=== PATIENT | male | born 1975 | race Caucasian/White ===

== ENCOUNTER 2017-03-19 23:03 | Emergency (ER) | payer BC ==
[~2017-03-19] VITALS: Ht 190.5 cm; Wt 116.0 kg
[~2017-03-19 23:03] MED LIST: BNC/40 PO; GLC500 PO; MULT-506 PO
[2017-03-19 23:13] VITALS: Ht 190.5 cm; Wt 116.0 kg
[2017-03-19] MEDS ORDERED: SODIUM CHLORIDE 0.9% 1000ML 1,000 ML IV STA (23:34)
[2017-03-19] MEDS ORDERED: DiphenhydrAMINE HCL 50 MG/ML VIAL IV STA (23:34)
[2017-03-19] MEDS ORDERED: METOCLOPRAMIDE HCL INJ 5 MG/ML 2 ML VIAL IV STA (23:34)
[2017-03-19] MEDS ORDERED: SODIUM CHLORIDE 0.9% 1000ML 2,000 ML IV STA (23:34)
[2017-03-19] MEDS ORDERED: IBUPROFEN 800 MG TAB PO STA (23:34)
[2017-03-19] MEDS ORDERED: ACETAMINOPHEN 500 MG TAB PO STA (23:34)
[2017-03-19 23:49] LABS: BASO % 0.1 %; BASO ABS # 0.03 K/uL (0-0.2); COMPLETE YES; HEMATOCRIT 39.7 % (42-52); IG% 0.6 %; LYMPH % 2.3 %; LYMPH ABS # 0.48 K/uL (1.2-3.4); MEAN CELL VOLUME 83.4 fL (80-100); MEAN CORPUSCULAR HEMOGLOBIN 30.3 pg (25-34); MEAN CORPUSCULAR HGB CONC 36.3 g/dl (32-36); MEAN PLATELET VOLUME 8.9 fL (7.4-10.4); MONO % 4.3 %; NEUT % 92.7 %; PLATELET COUNT 153 K/uL (130-400); RED BLOOD COUNT 4.76 M/uL (4.7-6.1); WHITE BLOOD COUNT 21.33 K/uL (4.8-10.8)
[2017-03-19] MEDS ORDERED: CEFTRIAXONE SOD INJ 2,000 MG in DEXTROSE 5% 50ML 50 ML IV STA (23:57)
[2017-03-20] VITALS: O2SAT 98
[2017-03-20] MEDS ORDERED: DEXAMETHASONE SOD INJ 10 MG/ML VIAL IV ONE
[2017-03-20 00:01] LABS: INR 1.1 (0.9-1.1); PARTIAL THROMBOPLASTIN RATIO 0.9
[2017-03-20 00:06] LABS: ALT/SGPT 40 U/L (12-78); BLOOD UREA NITROGEN 16 mg/dl (7-18); BUN/CREATININE RATIO 11.1 (10-20); CARBON DIOXIDE 24 mmol/L (21-32); CHLORIDE 97 mmol/L (98-107); GLUCOSE 215 mg/dl (70-99); POTASSIUM 3.8 mmol/L (3.5-5.1); SODIUM 133 mmol/L (136-145)
[2017-03-20 00:11] LABS: ALB/GLOB RATIO 0.9 (0.9-2); ALKALINE PHOSPHATASE 84 U/L (45-117); AST/SGOT 33 U/L (15-37)
[2017-03-20 01:09] LABS: URINE APPEARANCE CLEAR (CLEAR); URINE BILIRUBIN NEG (NEG); URINE COLOR ORANGE; URINE NITRITE NEG (NEG); URINE PH 5.5 (4.5-7.5); URINE SPECIFIC GRAVITY 1.026 (1.000-1.030); UROBILINOGEN NEG (NEG); ZZUR CULT IF INDIC CLEAN CATCH NO
[2017-03-20 01:10] LABS: MANUAL MICROSCOPIC REQUIRED? NO; REVIEW REQ? NO
[2017-03-20] MEDS ORDERED: XYLOCAINE 1%/SOD BICARB 20 ML VIAL INFIL ONE (01:15)
[2017-03-20 01:40] LABS: CSF APPEARANCE CLEAR; CSF CHEMISTRY TUBE # 2; CSF COLOR COLORLESS; CSF XANTHOCHROMIC NO XANTHOCHROMIA
[2017-03-20 01:57] VITALS: BP 129/59; PULSE 99; TEMP 37.9; O2SAT 98
[2017-03-20 02:08] LABS: INFLUENZA A PCR Neg for Influ A (NEG); INFLUENZA B PCR Neg for Influ B (NEG)
--- NOTE | 2017-03-20 02:39 | EMERGENCY ROOM VISIT NOTE ---
History First contact with patient: 23:23 Chief Complaint: FEVER Stated Complaint: VOMITING, FEVER 104 History of Present Illness The patient is a 41 year old male who presents to the Emergency Room with complaints of headache, fever, vomiting for the past day who for the past week has had sinus pain or congestion. Tmax 104 today. Patient is tolerating 6 PM. Patient states he has chronic neck pain and this is unchanged. Headache, 6 of 10 throughout the frontal region. Nothing makes it better or worse. Patient denies chest pain, dyspnea, abdominal pain, diarrhea, back pain, urinary symptoms. No recent travel. Review of Systems See HPI for pertinent positives & negatives. A total of 10 systems reviewed and were otherwise negative. Past Medical/Surgical History Medical Problems: (1) Anxiety Hypertension, diabetes, sinus surgery Social History Smoking Status: Never Smoker Alcohol Use: occasionally Drug Use: none Marital Status: Housing Status: lives with family Occupation Status: employed Current/Historical Medications Scheduled Metformin HCl (Metformin HCl), 500 MG PO BIDM Multivitamin (Multivitamin), 1 TAB PO DAILY Olmesartan Medoxomil (Benicar), 20 MG PO DAILY Physical Exam Vital Signs Date Time Temp Pulse Resp B/P (MAP) Pulse Ox O2 Delivery O2 Flow Rate FiO2 03/20/17 01:57 37.9 99 20 129/59 98 Room Air 03/20/17 00:17 116 20 113/55 96 Room Air 03/20/17 00:00 98 Room Air 03/19/17 23:40 113 03/19/17 23:13 37.7 120 20 144/84 97 Room Air Physical Exam VITALS: Vitals are noted on the nurse's note and reviewed by myself. Vital signs febrile and tachycardic GENERAL: Pleasant male ill-appearing, in no acute distress, nondiaphoretic, well -developed well-nourished. SKIN: The skin was without rashes, erythema, edema, or bruising. There is no tenting of the skin. Capillary reflex less than 2 seconds. HEAD: Normocephalic atraumatic. EARS: External auditory canals clear, tympanic membranes pearly velasquez without erythema or effusion bilaterally. EYES: Pupils equal round and reactive to light and accommodation. Conjunctivae without injection, sclerae without icterus. Extraocular movements intact. NOSE: Patent, turbinates without inflammation or discharge. + Maxillary sinus tenderness. MOUTH: Mucous membranes mildly dry pharynx without erythema or exudate. Uvula midline. Airway patent. Tongue does not deviate. NECK: Supple without nuchal rigidity. No lymphadenopathy. No thyromegaly. Cervical spine is nontender. No JVD. HEART: Regular rate and rhythm without murmurs gallops or rubs. LUNGS: Clear to auscultation bilaterally without wheezes, rales or rhonchi. No dullness to percussion. No retractions or accessory muscle use. ABDOMEN: Positive bowel sounds x 4. Normal tympanic percussion. Soft, nontender, without masses or organomegaly. Rowland sign negative. No guarding or rebound tenderness. MUSCULOSKELETAL: No muscle atrophy, erythema, or edema noted. NEURO: Patient was alert and oriented to person place and time. Normal sensation to light and sharp touch. No focal neurological deficits. Medical Decision & Procedures Laboratory Results 03/19/17 23:39 Red Blood Count 4.76, Mean Corpuscular Volume 83.4, Mean Corpuscular Hemoglobin 30.3, Mean Corpuscular Hemoglobin Concent 36.3, Mean Platelet Volume 8.9, Neutrophils (%) (Auto) 92.7, Lymphocytes (%) (Auto) 2.3, Monocytes (%) (Auto) 4.3, Eosinophils (%) (Auto) 0.0, Basophils (%) (Auto) 0.1, Neutrophils # (Auto) 19.79, Lymphocytes # (Auto) 0.48, Monocytes # (Auto) 0.91, Eosinophils # (Auto) 0.00, Basophils # (Auto) 0.03 03/19/17 23:39 Test 03/19/17 23:39 03/19/17 23:50 03/20/17 00:45 03/20/17 01:15 White Blood Count 21.33 K/uL (4.8-10.8) Red Blood Count 4.76 M/uL (4.7-6.1) Hemoglobin 14.4 g/dL (14.0-18.0) Hematocrit 39.7 % (42-52) Mean Corpuscular Volume 83.4 fL (80-100) Mean Corpuscular Hemoglobin 30.3 pg (25-34) Mean Corpuscular Hemoglobin Concent 36.3 g/dl (32-36) Platelet Count 153 K/uL (130-400) Mean Platelet Volume 8.9 fL (7.4-10.4) Neutrophils (%) (Auto) 92.7 % Lymphocytes (%) (Auto) 2.3 % Monocytes (%) (Auto) 4.3 % Eosinophils (%) (Auto) 0.0 % Basophils (%) (Auto) 0.1 % Neutrophils # (Auto) 19.79 K/uL (1.4-6.5) Lymphocytes # (Auto) 0.48 K/uL (1.2-3.4) Monocytes # (Auto) 0.91 K/uL (0.11-0.59) Eosinophils # (Auto) 0.00 K/uL (0-0.5) Basophils # (Auto) 0.03 K/uL (0-0.2) RDW Standard Deviation 39.3 fL (36.4-46.3) RDW Coefficient of Variation 12.9 % (11.5-14.5) Immature Granulocyte % (Auto) 0.6 % Immature Granulocyte # (Auto) 0.12 K/uL (0.00-0.02) Prothrombin Time 12.0 SECONDS (9.0-12.0) Prothromb Time International Ratio 1.1 (0.9-1.1) Activated Partial Thromboplast Time 23.4 SECONDS (21.0-31.0) Partial Thromboplastin Ratio 0.9 Anion Gap 12.0 mmol/L (3-11) Est Creatinine Clear Calc Drug Dose 96.3 ml/min Estimated GFR () 72.3 Estimated GFR (Non- 62.4 BUN/Creatinine Ratio 11.1 (10-20) Calcium Level 10.0 mg/dl (8.5-10.1) Total Bilirubin 3.8 mg/dl (0.2-1) Aspartate Amino Transf (AST/SGOT) 33 U/L (15-37) Alanine Aminotransferase (ALT/SGPT) 40 U/L (12-78) Alkaline Phosphatase 84 U/L (45-117) Troponin I < 0.015 ng/ml (0-0.045) Total Protein 8.2 gm/dl (6.4-8.2) Albumin 3.9 gm/dl (3.4-5.0) Globulin 4.3 gm/dl (2.5-4.0) Albumin/Globulin Ratio 0.9 (0.9-2) Influenza Type A (RT-PCR) Neg for Influ A (NEG) Influenza Type A Antigen Neg for Influ A (NEG) Influenza Type B Antigen Neg for Influ B (NEG) Influenza Type B (RT-PCR) Neg for Influ B (NEG) Urine Color ORANGE Urine Appearance CLEAR (CLEAR) Urine pH 5.5 (4.5-7.5) Urine Specific Holt 1.026 (1.000-1.030) Urine Protein 1+ (NEG) Urine Glucose (UA) 1+ (NEG) Urine Ketones 2+ (NEG) Urine Occult Blood TRACE (NEG) Urine Nitrite NEG (NEG) Urine Bilirubin NEG (NEG) Urine Urobilinogen NEG (NEG) Urine Leukocyte Esterase NEG (NEG) Urine WBC (Auto) 1-5 /hpf (0-5) Urine RBC (Auto) 0-4 /hpf (0-4) Urine Hyaline Casts (Auto) 1-5 /lpf (0-5) Urine Epithelial Cells (Auto) 5-10 /lpf (0-5) Urine Bacteria (Auto) NEG (NEG) CSF Color COLORLESS CSF Appearance CLEAR CSF WBC 1 /uL (0-5) CSF RBC 0 /uL (0) CSF Xanthrochromic NO XANTHOCHROMIA CSF Cell Count Tube # 4 CSF Chemistry Tube # 2 CSF Glucose 97 mg/dl (40-70) CSF Total Protein 75.0 mg/dl (15.0-45.0) Medications Administered Medications (Trade) Dose Ordered Sig/Carson Route Start Time Stop Time Status Last Admin Dose Admin Sodium Chloride 2,000 ml @ 999 mls/hr Q2H1M STAT IV 03/19/17 23:34 03/20/17 01:34 DC 03/19/17 23:46 999 MLS/HR Sodium Chloride 1,000 ml @ 125 mls/hr Q8H STAT IV 03/19/17 23:34 03/20/17 07:33 03/19/17 23:46 125 MLS/HR Metoclopramide HCl (Reglan Inj) 10 mg NOW STAT IV 03/19/17 23:34 03/19/17 23:37 DC 03/19/17 23:47 10 MG Diphenhydramine HCl (Benadryl Inj) 12.5 mg NOW STAT IV 03/19/17 23:34 03/19/17 23:37 DC 03/19/17 23:46 12.5 MG Acetaminophen (Tylenol Tab) 1,000 mg NOW STAT PO 03/19/17 23:34 03/19/17 23:37 DC 03/19/17 23:48 1,000 MG Ibuprofen (Motrin Tab) 800 mg NOW STAT PO 03/19/17 23:34 03/19/17 23:37 DC 03/19/17 23:47 800 MG Ceftriaxone Sodium 2000 mg/ Dextrose 70 ml @ 100 mls/hr ONE STAT IV 03/19/17 23:57 03/20/17 00:38 DC 03/20/17 00:13 100 MLS/HR Dexamethasone Sodium Phosphate (Decadron Inj) 10 mg NOW ONCE IV 03/20/17 00:00 03/20/17 00:01 DC 03/20/17 00:13 10 MG Lidocaine HCl (Buffered Lidocaine 1% Inj) 20 ml ONE ONCE INFIL 03/20/17 01:15 03/20/17 01:16 DC 03/20/17 01:09 20 ML Procedure Lumbar Puncture Indication: Rule out meningitis. Verbal consent was obtained after the risks and benefits were explained, including but not limited to headache, bleeding/clotting, scarring, infection, pain, and bone/joint/nerve damage. At this time, the risks of the procedure are less than the risks of NOT performing the procedure. A time out was taken and the correct patient and site identified. The patient was placed in the sitting position and the back was prepped with betadine and draped in the standard fashion. The L3 intervertebral space was identified, anesthetized locally with 1 % lidocaine without epinephrine, and the 22 gauge spinal needle was inserted through the skin with the bevel parallel to the dural fibers. The needle was carefully advanced into the lumbar cistern and 4 tubes of clear CSF was obtained. The stylet was replaced and the needle was removed. A bandaid was placed and the patient was placed in the supine position. The patient tolerated the procedure well and there were no complications. ED Course Prior records/ancillary studies reviewed. Triage Nursing notes reviewed. Additional history obtained from family. The patient's history was concerning for fever. Differential diagnosis: Etiologies such as viral syndrome, otitis, pharyngitis, pneumonia, influenza, meningitis, urinary tract infection, sepsis, bacteremia, as well as others were entertained. Physical examination: Patient is ill-appearing ER treatment provided: Rocephin, Decadron, Reglan, Benadryl, IV fluids On reassessment the patient felt better. Diagnostics interpreted by me: ECG: Normal sinus, normal intervals, no acute ST-T wave changes, rate of 110. Impression sinus tachycardia interpreted by myself The labs revealed leukocytosis. Negative CSF for meningitis Imaging studies: X-ray concerning for right lower lobe pneumonia per my interpretation. NO Free air. Head and sinus CT negative for intracranial bleed. Right maxillary sinus retention cyst per radiology This appears to be consistent with pneumonia. Patient was started on antibiotics. No signs of meningitis on laboratory workup. Patient was neurovascularly and neurologically intact. Patient is well-appearing. Patient is tolerating fluids. Patient did not have an acute abdomen on exam. Patient was ambulating without difficulties. Patient was advised to follow-up with family care in a few days or here in the ER sooner for severe pain, fevers, chest pain, abdominal pain, worsening signs or symptoms or as needed.By the evaluation outlined above emergent etiologies such as otitis, pharyngitis, meningitis, urinary tract infection, sepsis, bacteremia, as well as others were deemed relatively unlikely. Patient was counseled on the LP and spinal headaches. The pt informed about the findings as listed above. All questions were answered and pleased with the treatment. Return instructions were outlined and the patient was discharged in stable condition. Outpatient prescription management: Clarithromycin Referral: The patient was referred back to their primary care physician for follow-up in 2 to 3 days for a recheck of the current condition. Case reviewed with my attending Medical Decision As above Medication Reconcilliation Current Medication List: was personally reviewed by me Blood Pressure Screening Patient's blood pressure: Normal blood pressure Impression Primary Impression: Pneumonia Additional Impressions: Fever Headache Departure Information Dispostion Home / Self-Care Condition GOOD Referrals Anjelica Foss M.D. (PCP) Patient Instructions My [facility] Additional Instructions DO NOT drive, drink alcohol, operate machinery, or perform dangerous activities today. You were given medications in the ER that can affect your ability to safely function or operate a vehicle. If you develop a headache when you sit up that goes away when you lay down and does not resolve with Tylenol or Motrin within the next 72 hours then you can come to the ER for possible blood patch for possible spinal headache. Biaxin 500 mg: Take one pill twice daily for 10 days for your infection. Take with food, but avoid dairy. Avoid prolonged sun exposure since this medication makes you temporarily more susceptible to sunburns. All antibiotics can cause diarrhea. If this occurs and you feel worse or it does not resolve in 1-2 days follow up with your doctor or return to the Emergency Department as this could be signs of serious underlying problems. Any medication can cause an allergic reaction, stop the pills immediately and return to the ER for rash, hives, breathing difficulties, or swelling. Albuterol Inhaler: Take 2 puffs four times daily for seven days, then as needed. Acetaminophen(Tylenol) may be used for fever or pain. Use 1000mg every six hours as needed. Avoid using more than 3000mg in a 24 hour period. AND/OR Ibuprofen(Motrin, Advil) may be used for fever or pain. Use 600mg every six hours as needed. Take with food. Avoid using more than 2400mg in a 24 hour period. Do not use 2400mg per day for more than three consecutive days without physician direction. Prolonged inappropriate use can lead to stomach upset or ulcers. Hycodan cough syrup: use one teaspoon every six hours only as needed for severe cough. It is best for use at night since it will cause sedation. This is a narcotic medication. Avoid alcohol, operating machinery or dangerous equipment, working on ladders or roofs, DRIVING, or situations where being under the influence may be dangerous. It is recommended to use an over-the- counter stool softener such as Colace, 100mg twice daily while taking this medication to avoid constipation. Controlling your fever with Tylenol and Ibuprofen as above will make you feel better. Rest and drink plenty of fluids. Avoid strenuous activity until your symptoms resolve and your breathing returns to normal. Continue current medications. Return to the ER for chest pain, difficulty breathing, persistent fevers, vomiting, worsening of your condition, or as needed. Follow-up with family care in 2-3 days. Problem Qualifiers Primary Impression: Pneumonia Pneumonia type: due to unspecified organism Laterality: right Lung location : lower lobe of lung Qualified Codes: J18.1 - Lobar pneumonia, unspecified organism
[2017-03-20] MEDS ORDERED: CLAR500T3 PO (02:40)
[2017-03-20] MEDS ORDERED: ALBUTEROL HFA 8 GM INHALER INH ONE (03:35)
--- NOTE | 2017-03-20 06:31 | DIAGNOSTIC IMAGING REPORT ---
HEAD WITHOUT CONTRAST (CT) CT DOSE: HISTORY: Mental status change ELLIS/sinus pain, fever TECHNIQUE: Multiaxial CT images of the head were performed without the use of intravenous contrast. A dose lowering technique was utilized adhering to the principles of ALARA. Comparison: None. Findings: The paranasal sinuses and mastoid air cells are clear. The calvarium and skull base are intact. The ventricles and sulci are within normal limits. There is no mass, hematoma, midline shift, or acute infarct. Impression: No acute intracranial abnormality. The above report was generated using voice recognition software. It may contain grammatical, syntax or spelling errors. Electronically signed by: Francisco Javier Franklin M.D. 03/20/2017 6:30 AM Dictated Date/Time: 03/20/2017 6:29 AM
--- NOTE | 2017-03-20 06:50 | DIAGNOSTIC IMAGING REPORT ---
CHEST ONE VIEW PORTABLE CLINICAL HISTORY: Sepsis. COMPARISON STUDY: Chest radiograph December 20, 2015. FINDINGS: Lung volumes are at the lower limits of normal. There is no pneumothorax or pleural effusion. Pulmonary vascularity is normal. No consolidation is identified. Cardiomediastinal silhouette is normal. IMPRESSION: No acute cardiopulmonary findings. Electronically signed by: Remigio Porras M.D. 03/20/2017 6:49 AM Dictated Date/Time: 03/20/2017 6:48 AM
--- NOTE | 2017-03-20 07:10 | DIAGNOSTIC IMAGING REPORT ---
CT SCAN OF THE PARANASAL SINUSES CLINICAL HISTORY: Headache. Sinus pain. COMPARISON STUDY: CT of the brain performed concurrently on 03/20/2017. TECHNIQUE: High-resolution CT scan of the paranasal sinuses is performed. Images are reviewed in the axial, sagittal, and coronal planes. IV contrast was not administered for this examination. A dose lowering technique was utilized adhering to the principles of ALARA. FINDINGS: Maxillary antra: Trace dependent mucosal thickening is seen bilaterally. A 9 mm retention cyst is noted on the right. Anterior ethmoid sinuses: Clear. Posterior ethmoid sinuses: Clear. Sphenoid sinuses: Clear. Frontal sinuses: Clear. Ostiomeatal complexes: Patent bilaterally. Frontoethmoidal and sphenoethmoidal recesses: Patent bilaterally. Carotid arteries: The carotid arteries are protuberant but covered and without septal attachments. Ethmoid roofs: The ethmoid roofs are symmetric. Nasal turbinates: Normal in appearance. Nasal septum: There is mild leftward deviation of the bony nasal septum. Optic nerves: The optic nerves are covered and protrude into the sphenoid sinuses. Orbits: The bony orbits are intact. Orbital contents are normal in appearance. Calvarium: The imaged calvarium is normal in appearance Mastoid air cells: Well pneumatized. Brain parenchyma: Partially visualized brain parenchyma is within normal limits. IMPRESSION: No significant paranasal sinus disease. See above. Electronically signed by: Evan Casper M.D. 03/20/2017 7:09 AM Dictated Date/Time: 03/20/2017 7:06 AM
--- NOTE | 2017-03-20 14:10 | Pharmacy Progress Note ---
ED Pharmacist Culture FollowUp Date of Service: Mar 20, 2017. Called patient regarding gram positive cocci blood culture. Informed patient of the seriousness of this result and recommended he return to ER for evaluation and follow up care as soon as possible. He verbalized understanding and stated he would return for follow up care.
[2017-03-20] MEDS ORDERED: METF500T5 PO (18:16)
[2017-03-22] MEDS ORDERED: MCRK20 PO (11:44)
[2017-03-22] MEDS ORDERED: AMOX875T PO (11:44)
== END 2017-03-20 03:38 | disposition home or self-care (01) ==
LOC: C.EDB 23:04
DX: J18.1 Lobar pneumonia, unspecified organism (principal); R50.9 Fever, unspecified; R51 Headache; F41.9 Anxiety disorder, unspecified; I10 Essential (primary) hypertension; E11.9 Type 2 diabetes mellitus without complications

== ENCOUNTER 2017-03-20 14:56 | Inpatient (IN) | payer BC ==
[~2017-03-20] VITALS: Ht 190.5 cm; Wt 117.9 kg
[~2017-03-20 14:56] MED LIST changes: +CLAR500T3 PO
[2017-03-20] MEDS ORDERED: VANCOMYCIN INJ 1,000 MG in SODIUM CHLORIDE 0.9% 250ML 250 ML IV STA (16:17)
--- NOTE | 2017-03-20 16:33 | DIAGNOSTIC IMAGING REPORT ---
CHEST ONE VIEW PORTABLE CLINICAL HISTORY: Sepsis COMPARISON STUDY: 03/19/2017 FINDINGS: The cardiac and mediastinal contours are normal. There is no evidence of focal pulmonary consolidation. There is no evidence of failure. No pleural effusions are visualized.[ IMPRESSION: No active disease in the chest. Electronically signed by: Jah Velasquez M.D. 03/20/2017 4:32 PM Dictated Date/Time: 03/20/2017 4:32 PM
[2017-03-20 17:16] LABS: HEMATOCRIT 38.7 % (42-52); MEAN CELL VOLUME 83.9 fL (80-100); MEAN CORPUSCULAR HEMOGLOBIN 29.1 pg (25-34); MEAN CORPUSCULAR HGB CONC 34.6 g/dl (32-36); MEAN PLATELET VOLUME 9.1 fL (7.4-10.4); PLATELET COUNT 186 K/uL (130-400); RED BLOOD COUNT 4.61 M/uL (4.7-6.1); WHITE BLOOD COUNT 24.58 K/uL (4.8-10.8)
[2017-03-20] MEDS ORDERED: IBUPROFEN 600 MG TAB PO STA (17:25)
[2017-03-20] MEDS ORDERED: SODIUM CHLORIDE 0.9% 1000ML 1,000 ML IV STA (17:25)
[2017-03-20 17:30] LABS: INR 1.2 (0.9-1.1); PARTIAL THROMBOPLASTIN RATIO 1.3; PROTHROMBIN TIME (PATIENT) 13.4 SECONDS (9.0-12.0)
[2017-03-20 17:34] LABS: BASO ABS # 0.01 K/uL (0-0.2); COMPLETE YES; IG% 0.5 %; LYMPH % 2.5 %; LYMPH ABS # 0.62 K/uL (1.2-3.4); MONO % 4.5 %; NEUT % 92.5 %
[2017-03-20 17:42] LABS: CALCIUM 9.7 mg/dl (8.5-10.1); CREATININE 1.1 mg/dl (0.60-1.40); POTASSIUM 3.7 mmol/L (3.5-5.1)
[2017-03-20 17:51] LABS: ALB/GLOB RATIO 0.8 (0.9-2)
[2017-03-20 17:52] LABS: URINE APPEARANCE CLEAR (CLEAR); URINE COLOR ORANGE; URINE NITRITE POS (NEG); URINE PH 5.5 (4.5-7.5); URINE SPECIFIC GRAVITY 1.045 (1.000-1.030); UROBILINOGEN NEG (NEG); ZZUR CULT IF INDIC CLEAN CATCH NO
[2017-03-20 17:55] LABS: MANUAL MICROSCOPIC REQUIRED? NO; REVIEW REQ? NO
[2017-03-20 17:58] LABS: URINE BILIRUBIN NEG (NEG)
[2017-03-20] MEDS ORDERED: GLUCOSE 40% GEL 15 GM TUBE PO PRN (18:15)
[2017-03-20] MEDS ORDERED: DEXTROSE 50% 50 ML SYR IV PRN (18:15)
[2017-03-20] MEDS ORDERED: GLUCAGON FOR INJ 1 MG VIAL SQ PRN (18:15)
[2017-03-20] MEDS ORDERED: ONDANSETRON INJ 2 MG/ML 2 ML VIAL IV PRN (18:15)
[2017-03-20] MEDS ORDERED: GLUCOSE 10 TABS/TUBE PO PRN (18:15)
[2017-03-20] MEDS ORDERED: METF500T5 PO (18:16)
[2017-03-20] MEDS ORDERED: VANCOMYCIN CONSULT ACTIVE PRN (18:27)
--- NOTE | 2017-03-20 18:37 | EMERGENCY ROOM VISIT NOTE ---
History Report prepared by Harinder: Sudha Zhou Under the Supervision of: Dr. Pepe Kent M.D. First contact with patient: 16:05 Chief Complaint: ILLNESS Stated Complaint: BLOOD INFECTION/PNEUMONIA History of Present Illness The patient is a 41 year old male who presents to the Emergency Room with complaints of persistent illness starting 2 weeks ago. The patient was seen in the ED yesterday and discharged on clarithromycin for pneumonia. He had a negative lumbar puncture. He has not picked up the prescription yet. His symptoms started 2 weeks ago with sinus infection. He took 2 days off work and was beginning to feel better. Last Friday, he went to the football game and had a headache that day. Two days later, his glands started swelling and becoming painful. Yesterday, he started vomiting and began feeling more sick. He has had a mild headache since yesterday which is worse with sitting up. He attributes the headache to the LP yesterday. He has some pain in his chest with coughing. He denies any abdominal pain, urinary symptoms, or SOB. He denies any recent tick bites. Source of History: patient Onset: 2 weeks ago Position: other (global) Quality: other (illness) Timing: other (persistent) Associated Symptoms: + headache, + chest pain (with cough), No SOB, No abdominal pain, No urinary symptoms Review of Systems See HPI for pertinent positives & negatives. A total of 10 systems reviewed and were otherwise negative. Past Medical & Surgical Medical Problems: (1) Anxiety (2) Bacteremia Family History No pertinent family history stated. Social History Smoking Status: Never Smoker Alcohol Use: occasionally Drug Use: none Marital Status: Housing Status: lives with family Occupation Status: employed Current/Historical Medications Scheduled Clarithromycin (Biaxin), 1 TAB PO BID Metformin Hcl Er (Glucophage Er), 2 TAB PO DAILY Multivitamin (Multivitamin), 1 TAB PO DAILY Olmesartan Medoxomil (Benicar), 20 MG PO DAILY Allergies Coded Allergies: No Known Allergies (Unverified , 12/20/15) Physical Exam Vital Signs Date Time Temp Pulse Resp B/P (MAP) Pulse Ox O2 Delivery O2 Flow Rate FiO2 03/20/17 18:18 37.0 91 16 129/73 98 03/20/17 17:19 89 16 128/78 97 Room Air 03/20/17 17:19 96 Room Air 03/20/17 15:09 36.9 86 18 131/81 99 Room Air Physical Exam Constitutional: Vital signs reviewed. Eyes: Pupils are equal round reactive to light. Conjunctiva are noninjected. ENT: Pharynx is clear without erythema or exudate. Mucous membranes are moist. Neck supple without meningeal signs. Respiratory: Clear to auscultation bilaterally. Breath sounds are equal bilaterally. Cardiovascular: Regular rate and rhythm. No rubs or gallops. GI: Soft, nondistended and nontender. Bowel sounds are present. Musculoskeletal: No peripheral edema. No lower extremity tenderness. Integumentary: No cyanosis. Puncture site in lower back without signs of infection or bleeding. Neurological: The patient is awake and alert. No focal deficits. Psychiatric: Normal affect. Medical Decision & Procedures ER Provider Diagnostic Interpretation: X-ray results as stated below per interpretation by me and the radiologist: CHEST ONE VIEW PORTABLE CLINICAL HISTORY: Sepsis COMPARISON STUDY: 03/19/2017 FINDINGS: The cardiac and mediastinal contours are normal. There is no evidence of focal pulmonary consolidation. There is no evidence of failure. No pleural effusions are visualized.[ IMPRESSION: No active disease in the chest. Electronically signed by: Jah Velasquez M.D. 03/20/2017 4:32 PM Dictated Date/Time: 03/20/2017 4:32 PM Laboratory Results 03/20/17 16:57 Red Blood Count 4.61, Mean Corpuscular Volume 83.9, Mean Corpuscular Hemoglobin 29.1, Mean Corpuscular Hemoglobin Concent 34.6, Mean Platelet Volume 9.1, Neutrophils (%) (Auto) 92.5, Lymphocytes (%) (Auto) 2.5, Monocytes (%) (Auto) 4.5, Eosinophils (%) (Auto) 0.0, Basophils (%) (Auto) 0.0, Neutrophils # (Auto) 22.71, Lymphocytes # (Auto) 0.62, Monocytes # (Auto) 1.11, Eosinophils # (Auto) 0.00, Basophils # (Auto) 0.01 03/20/17 16:57 Test 03/20/17 16:57 03/20/17 17:05 03/20/17 17:19 White Blood Count 24.58 K/uL (4.8-10.8) Red Blood Count 4.61 M/uL (4.7-6.1) Hemoglobin 13.4 g/dL (14.0-18.0) Hematocrit 38.7 % (42-52) Mean Corpuscular Volume 83.9 fL (80-100) Mean Corpuscular Hemoglobin 29.1 pg (25-34) Mean Corpuscular Hemoglobin Concent 34.6 g/dl (32-36) Platelet Count 186 K/uL (130-400) Mean Platelet Volume 9.1 fL (7.4-10.4) Neutrophils (%) (Auto) 92.5 % Lymphocytes (%) (Auto) 2.5 % Monocytes (%) (Auto) 4.5 % Eosinophils (%) (Auto) 0.0 % Basophils (%) (Auto) 0.0 % Neutrophils # (Auto) 22.71 K/uL (1.4-6.5) Lymphocytes # (Auto) 0.62 K/uL (1.2-3.4) Monocytes # (Auto) 1.11 K/uL (0.11-0.59) Eosinophils # (Auto) 0.00 K/uL (0-0.5) Basophils # (Auto) 0.01 K/uL (0-0.2) RDW Standard Deviation 40.5 fL (36.4-46.3) RDW Coefficient of Variation 13.5 % (11.5-14.5) Immature Granulocyte % (Auto) 0.5 % Immature Granulocyte # (Auto) 0.13 K/uL (0.00-0.02) Prothrombin Time 13.4 SECONDS (9.0-12.0) Prothromb Time International Ratio 1.2 (0.9-1.1) Activated Partial Thromboplast Time 32.5 SECONDS (21.0-31.0) Partial Thromboplastin Ratio 1.3 Anion Gap 6.0 mmol/L (3-11) Est Creatinine Clear Calc Drug Dose 123.6 ml/min Estimated GFR () 96.8 Estimated GFR (Non- 83.5 BUN/Creatinine Ratio 17.0 (10-20) Calcium Level 9.7 mg/dl (8.5-10.1) Total Bilirubin 2.7 mg/dl (0.2-1) Aspartate Amino Transf (AST/SGOT) 56 U/L (15-37) Alanine Aminotransferase (ALT/SGPT) 82 U/L (12-78) Alkaline Phosphatase 75 U/L (45-117) Total Protein 7.7 gm/dl (6.4-8.2) Albumin 3.4 gm/dl (3.4-5.0) Globulin 4.3 gm/dl (2.5-4.0) Albumin/Globulin Ratio 0.8 (0.9-2) Bedside Lactic Acid Venous 1.63 mmol/L (0.90-1.70) Urine Color ORANGE Urine Appearance CLEAR (CLEAR) Urine pH 5.5 (4.5-7.5) Urine Specific [place] 1.045 (1.000-1.030) Urine Protein 2+ (NEG) Urine Glucose (UA) 3+ (NEG) Urine Ketones TRACE (NEG) Urine Occult Blood NEG (NEG) Urine Nitrite POS (NEG) Urine Bilirubin NEG (NEG) Urine Urobilinogen NEG (NEG) Urine Leukocyte Esterase NEG (NEG) Urine WBC (Auto) 1-5 /hpf (0-5) Urine RBC (Auto) 5-10 /hpf (0-4) Urine Hyaline Casts (Auto) 5-10 /lpf (0-5) Urine Epithelial Cells (Auto) 10-20 /lpf (0-5) Urine Bacteria (Auto) NEG (NEG) Laboratory results as reviewed by me. Medications Administered Medications (Trade) Dose Ordered Sig/[place] Route Start Time Stop Time Status Last Admin Dose Admin Vancomycin HCl 1000 mg/Sodium Chloride 270 ml @ 125 mls/hr NOW STAT IV 03/20/17 16:17 03/20/17 18:26 DC 03/20/17 17:34 125 MLS/HR Sodium Chloride 1,000 ml @ 999 mls/hr Q1H1M STAT IV 03/20/17 17:25 03/20/17 18:25 DC 03/20/17 17:34 999 MLS/HR Ibuprofen (Motrin Tab) 600 mg NOW STAT PO 03/20/17 17:25 03/20/17 17:26 DC 03/20/17 17:34 600 MG ED Course 1612: The patient was evaluated in room A10. A complete history and physical exam was performed. 1617: Vancomycin HCl 1000 mg/Sodium Chloride 270 ml @ 125 mls/hr IV. 1724: I discussed the patient's case with Elena Harrison PA-C [facility] hospitalist service. She will evaluate the patient for further management. 1725: Ibuprofen 600 mg PO, NSS 1000 ml @ 999 mls/hr IV. 1730: I reevaluated the patient. I discussed the results with him. He verbalized agreement of the treatment plan. He will be evaluated for further management. Medical Decision This is a 41-year-old male who presents with positive blood cultures. I did perform a limited focused review of portions of the patient's old chart on the electronic medical record. The patient was seen here last night for fever and vomiting with a headache. He had a negative CT head as well as negative LP. He was placed on clarithromycin for right lower lobe pneumonia. Chest X-ray was officially read by radiology as negative. The CSF culture is negative so far. He had 2 positive blood cultures which grew out gram positive cocci. I did evaluate the patient as noted above. The patient is presenting with high fevers, headache and sinus symptoms. He had an extensive workup done yesterday. He is presenting back today because he had positive blood cultures 2. IV access was established. The patient was placed on a continuous alarm security or surveillance monitor. I did order and personally review the patient's chest x-ray as described above. There is no evidence of pneumonia. Blood cultures were ordered. I did order and review the patient's blood work as noted in the electronic medical record. His white blood cell count is elevated again. He does not have an elevated lactic acid. I did treat him with vancomycin IV. I did recommend hospitalization. 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 Medication Reconcilliation Current Medication List: was personally reviewed by me Blood Pressure Screening Patient's blood pressure: Elevated blood pressure Blood pressure disposition: Referred to PCP Consults Time Called: 1717 Consulting Physician: LYNSEY Torres hospitalist service Returned Call: 1724 I discussed the patient's case with her. She will evaluate the patient for further management. Impression Primary Impression: Bacteremia Additional Impression: Headache Scribe Attestation The scribe's documentation has been prepared under my direct and personally reviewed by me in its entirety. I confirm that the note above accurately reflects all work, treatment, procedures, and medical decision making performed by me. Departure Information Dispostion Being Evaluated By Hospitalist Referrals Anjelica Foss M.D. (PCP) Patient Instructions My [facility] Problem Qualifiers Additional Impression: Headache Headache type: unspecified Headache chronicity pattern: acute headache Intractability: not intractable Qualified Codes: R51 - Headache
[2017-03-20] MEDS ORDERED: BUTALBITAL/ACETAMIN/CAFFEINE TAB PO PRN (18:45)
[2017-03-20] MEDS ORDERED: LEVOFLOXACIN / D5W 750 MG in PREMIXED IN D5W 150 ML IV ONE (19:00)
[2017-03-20] MEDS: INSULIN ASPART 100 UNITS/ML 3 ML PEN SC SCH (19:47)
[2017-03-20] MEDS ORDERED: VANCOMYCIN INJ 2,000 MG in SODIUM CHLORIDE 0.9% 500ML 500 ML IV SCH (20:00)
[2017-03-20] MEDS: ENOXAPARIN 40 MG/0.4 ML SYR SQ SCH (20:00)
[2017-03-20 20:10] VITALS: BP 161/80; PULSE 70; TEMP 36.5; O2SAT 98; BMI 32.5
[2017-03-20] MEDS ORDERED: PNEUMOCOCCAL ADMINISTRATION CHARGE ONE (20:45)
[2017-03-20] MEDS ORDERED: PNEUMOCOCCAL POLYSACCHARIDES 25 MCG/0.5 ML VIAL/SYR IM. ONE (20:45)
[2017-03-20] MEDS ORDERED: INFLUENZA VIRUS QUAD VACCINE 0.5 ML SYR IM. ONE (20:45)
[2017-03-20] MEDS ORDERED: INFLUENZA ADMINISTRATION CHARGE ONE (20:45)
--- NOTE | 2017-03-20 20:51 | History and Physical ---
History & Physical Date & Time of Service: Mar 20, 2017 at 18:17 Chief Complaint: Blood Infection/Pneumonia Primary Care Physician: Anjelica Foss M.D. History of Present Illness Source: patient, clinic records, hospital records This is a 41 y/o male with PMH of HTN, DM 2, CLARKE on CPAP, and other problems listed below who was sent to the ED for positive blood cultures. Patient states 1.5 weeks ago he developed what he felt was a sinus infection with green nasal discharge, sore throat, clogged ears. He was not seen by a physician. Then yesterday while at work he developed vomiting, went home and noted fever of 104 F and painful swollen lymph noted on the left neck. He was seen in the ER yesterday, was tachycardic and febrile to 37.9, labs showed leukocytosis (WBC 21.3K). Pt was treated with IV Rocephin for possible pneumonia and sent home on Biaxin (did not get to take yet), however CXR read by radiologist with no evidence of pneumonia. Patient had LP done which was not concerning for meningitis, gram stain with few WBC's and no organisms. Blood cultures x 2 grew gram positive cocci, so patient was called to return to ER. Pt reports being afebrile this morning (did take Tylenol this am for ELLIS). Has frontal headache starting after lumbar puncture done yesterday, which is improving with Motrin given in ER. Still having nasal discharge which is improving to yellow color. Ear and throat symptoms resolved. He notes chronic neck stiffness. N/V is resolved and he feels ready to eat. He feels generally weak and achy in the upper body. Denies vision change, tooth ache, chest pain, SOB, cough, abdominal pain, diarrhea, dysuria, frequency, rash, tick or other bug bite. No recent abx until yesterday. No recent hospitalization. Reports hx of frequent sinusitis for which he underwent sinus surgery. 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 Physical Exam Vital Signs Date Time Temp Pulse Resp B/P (MAP) Pulse Ox O2 Delivery O2 Flow Rate FiO2 03/20/17 17:19 89 16 128/78 97 Room Air 03/20/17 17:19 96 Room Air 03/20/17 15:09 36.9 86 18 131/81 99 Room Air General Appearance: WD/WN, no apparent distress, + pertinent finding (alert 41 year old male, lying in bed, non-toxic appearing) Head: normocephalic, atraumatic Eyes: normal inspection, PERRL, sclerae normal ENT: hearing grossly normal, TMs normal, pharynx normal, + nasal congestion, + pertinent finding (teeth are in good repair, no obvious caries. + bilateral frontal sinus tenderness. no maxillary sinus tenderness. ) Neck: supple, trachea midline, + adenopathy present (left anterior cervical lymphadenopathy) Respiratory/Chest: lungs clear, normal breath sounds, no respiratory distress, no accessory muscle use, + pertinent finding (no wheezing, crackles, rhonchi) Cardiovascular: regular rate, rhythm, no murmur Abdomen/GI: normal bowel sounds, non tender, soft Back: no CVA tenderness Extremities/Musculoskelatal: no calf tenderness, no pedal edema Neurologic/Psych: alert, normal mood/affect, oriented x 3 Skin: normal color, warm/dry, no rash (no rash on the trunk or extremities) Diagnostics Laboratory Results Results Past 24 Hours Test 03/20/17 16:57 03/20/17 17:05 03/20/17 17:19 Range/Units White Blood Count 24.58 4.8-10.8 K/uL Red Blood Count 4.61 4.7-6.1 M/uL Hemoglobin 13.4 14.0-18.0 g/dL Hematocrit 38.7 42-52 % Mean Corpuscular Volume 83.9 80-100 fL Mean Corpuscular Hemoglobin 29.1 25-34 pg Mean Corpuscular Hemoglobin Concent 34.6 32-36 g/dl Platelet Count 186 130-400 K/uL Mean Platelet Volume 9.1 7.4-10.4 fL Neutrophils (%) (Auto) 92.5 % Lymphocytes (%) (Auto) 2.5 % Monocytes (%) (Auto) 4.5 % Eosinophils (%) (Auto) 0.0 % Basophils (%) (Auto) 0.0 % Neutrophils # (Auto) 22.71 1.4-6.5 K/uL Lymphocytes # (Auto) 0.62 1.2-3.4 K/uL Monocytes # (Auto) 1.11 0.11-0.59 K/uL Eosinophils # (Auto) 0.00 0-0.5 K/uL Basophils # (Auto) 0.01 0-0.2 K/uL RDW Standard Deviation 40.5 36.4-46.3 fL RDW Coefficient of Variation 13.5 11.5-14.5 % Immature Granulocyte % (Auto) 0.5 % Immature Granulocyte # (Auto) 0.13 0.00-0.02 K/uL Prothrombin Time 13.4 9.0-12.0 SECONDS Prothromb Time International Ratio 1.2 0.9-1.1 Activated Partial Thromboplast Time 32.5 21.0-31.0 SECONDS Partial Thromboplastin Ratio 1.3 Sodium Level 136 136-145 mmol/L Potassium Level 3.7 3.5-5.1 mmol/L Chloride Level 105 98-107 mmol/L Carbon Dioxide Level 25 21-32 mmol/L Anion Gap 6.0 3-11 mmol/L Blood Urea Nitrogen 19 7-18 mg/dl Creatinine 1.10 0.60-1.40 mg/dl Est Creatinine Clear Calc Drug Dose 123.6 ml/min Estimated GFR () 96.8 Estimated GFR (Non- 83.5 BUN/Creatinine Ratio 17.0 10-20 Random Glucose 252 70-99 mg/dl Calcium Level 9.7 8.5-10.1 mg/dl Total Bilirubin 2.7 0.2-1 mg/dl Aspartate Amino Transf (AST/SGOT) 56 15-37 U/L Alanine Aminotransferase (ALT/SGPT) 82 12-78 U/L Alkaline Phosphatase 75 45-117 U/L Total Protein 7.7 6.4-8.2 gm/dl Albumin 3.4 3.4-5.0 gm/dl Globulin 4.3 2.5-4.0 gm/dl Albumin/Globulin Ratio 0.8 0.9-2 Bedside Lactic Acid Venous 1.63 0.90-1.70 mmol/L Urine Color ORANGE Urine Appearance CLEAR CLEAR Urine pH 5.5 4.5-7.5 Urine Specific [place] 1.045 1.000-1.030 Urine Protein 2+ NEG Urine Glucose (UA) 3+ NEG Urine Ketones TRACE NEG Urine Occult Blood NEG NEG Urine Nitrite POS NEG Urine Bilirubin NEG NEG Urine Urobilinogen NEG NEG Urine Leukocyte Esterase NEG NEG Urine WBC (Auto) 1-5 0-5 /hpf Urine RBC (Auto) 5-10 0-4 /hpf Urine Hyaline Casts (Auto) 5-10 0-5 /lpf Urine Epithelial Cells (Auto) 10-20 0-5 /lpf Urine Bacteria (Auto) NEG NEG Microbiology Results 03/20/17 Blood Culture, Received Pending 03/20/17 Blood Culture, Received Pending Diagnostic Radiology CHEST ONE VIEW PORTABLE CLINICAL HISTORY: Sepsis COMPARISON STUDY: 03/19/2017 FINDINGS: The cardiac and mediastinal contours are normal. There is no evidence of focal pulmonary consolidation. There is no evidence of failure. No pleural effusions are visualized.[ IMPRESSION: No active disease in the chest. Impression Assessment and Plan GRAM POSITIVE BACTEREMIA Presented 03/19/17 with sinusitis symptoms, vomiting, fever; CT head and sinuses negative, received dose of IV Rocephin in ER yesterday for ? pneumonia then discharged to home on Biaxin, however CXR was negative, LP done 03/19/17- not consistent with meningitis, gram stain - rare WBC's, no organisms, CSF culture pending Returned to ER because blood cultures x 2 on 03/19/17 grew gram positive cocci Has leukocytosis (WBC 24.5K), but no sepsis (afebrile, no tachycardia, no tachypnea, lactic acid WNL) Repeat blood cultures pending Clinically source is likely sinusitis Workup 03/20/17- CXR- no infiltrate, UA mildly abnormal but not likely infected ( + nitrite, + epithelial cells) without UTI symptoms, no apparent skin source, will check TTE to r/o endocarditis Received vancomycin in ER; continue vancomycin for bacteremia, add Levaquin for coverage of atypicals in acute bacterial sinusitis Consult infectious disease HTN BP is stable Continue Benicar CLARKE Continue CPAP DM 2 Hold metformin Novolog sliding scale coverage DVT PROPHYLAXIS Lovenox SQ FULL CODE DISPOSITION Med/ surg Follows with Dr. Foss for primary care Patient seen in collaboration with Dr. Pérez. Please see her addendum. ADDENDUM: I have seen and examined the patient and agree with the assessment and plan above with the following additions. The patient is very stable and non -toxic appearing. He is mentating well. ENT exam is unremarkable. No meningeal signs. Otherwise physical exam is unremarkable. Vanc for empiric MRSA coverage, Levaquin for additional GP and atypical coverage common in acute bacterial sinusitis (no evidence of pnemonia), while awaiting cultures. Beto , DO VTE Prophylaxis VTE Risk Assessment Done? Y/N: Yes Risk Level: Low
--- NOTE | 2017-03-20 20:58 | Pharmacy Progress Note ---
Pharmacy Abx Initial Consult Date of Service Mar 20, 2017. Pharmacy Dosing Scope Date of Consult: 03/20/17 Consultation requested by: Анна Harrison PA-C Pharmacy is consulted to initiate Vancomycin IV dosing therapy, order appropriate labs and adjust drug dose/frequency. Subjective The patient is a 41 year old male admitted on Mar 20, 2017 at 17:56. Objective Height (Feet): 6 Height (Inches): 3.00 Weight (Kilograms): 117.900 Vital Signs (Past 12Hrs) Vital Signs Past 12 Hours Date Time Temp Pulse Resp B/P (MAP) Pulse Ox O2 Delivery O2 Flow Rate FiO2 03/20/17 20:10 36.5 70 20 161/80 98 Room Air 03/20/17 18:18 37.0 91 16 129/73 98 03/20/17 17:19 89 16 128/78 97 Room Air 03/20/17 17:19 96 Room Air 03/20/17 15:09 36.9 86 18 131/81 99 Room Air Lab Results (24Hrs) Laboratory Tests (24 Hours) Test 03/20/17 16:57 White Blood Count 24.58 K/uL (4.8-10.8) H Red Blood Count 4.61 M/uL (4.7-6.1) L Hemoglobin 13.4 g/dL (14.0-18.0) L Hematocrit 38.7 % (42-52) L Mean Corpuscular Volume 83.9 fL (80-100) Mean Corpuscular Hemoglobin 29.1 pg (25-34) Mean Corpuscular Hemoglobin Concent 34.6 g/dl (32-36) Platelet Count 186 K/uL (130-400) Mean Platelet Volume 9.1 fL (7.4-10.4) Neutrophils (%) (Auto) 92.5 % Lymphocytes (%) (Auto) 2.5 % Monocytes (%) (Auto) 4.5 % Eosinophils (%) (Auto) 0.0 % Basophils (%) (Auto) 0.0 % Neutrophils # (Auto) 22.71 K/uL (1.4-6.5) H Lymphocytes # (Auto) 0.62 K/uL (1.2-3.4) L Monocytes # (Auto) 1.11 K/uL (0.11-0.59) H Eosinophils # (Auto) 0.00 K/uL (0-0.5) Basophils # (Auto) 0.01 K/uL (0-0.2) Micro Results Date/Time Source Procedure Growth Status 03/20/17 16:57 Blood Blood Culture Pending Received 03/20/17 16:46 Blood Blood Culture Pending Received Assessment & Plan Assessment 41 year old male admitted for positive blood cultures with gram positive cocci in 08/01. Plan Vancomycin for treatment of Bacteremia. Vancomycin IV * Loading dose: Vanco 1gm IV x 1 was given in ED and then 2gm IV ordered for 1999 tonight = total load of 25 mg/kg. * Maintenance dose: 2 gm IV (16.9 mg/kg) every 12 hours started for tomorrow at 6 am. * Estimated pharmacokinetics: ke = 0.087/hr, t1/2 = 8 hrs, Vd = 0.7 L/kg * Goal trough level for Bacteremia: 15 to 20 mcg/mL * Trough Vanco level ordered for 03/22/17 before dose at 0600. Pharmacy will continue to follow and will adjust dose/frequency as necessary. Thank you.
[2017-03-20 22:24] VITALS: PULSE 88; O2SAT 97
[2017-03-20 22:25] VITALS: BP 133/84; PULSE 81; TEMP 36.7; O2SAT 96
[2017-03-21] MEDS: VANCOMYCIN INJ 2,000 MG in SODIUM CHLORIDE 0.9% 500ML 500 ML IV SCH ×2 (05:51→17:28)
[2017-03-21 05:59] LABS: HEMATOCRIT 37.3 % (42-52); MEAN CELL VOLUME 84.8 fL (80-100); MEAN CORPUSCULAR HEMOGLOBIN 29.8 pg (25-34); MEAN CORPUSCULAR HGB CONC 35.1 g/dl (32-36); PLATELET COUNT 152 K/uL (130-400); WHITE BLOOD COUNT 21.42 K/uL (4.8-10.8)
[2017-03-21 06:22] LABS: BASO % 0.1 %; BASO ABS # 0.02 K/uL (0-0.2); COMPLETE YES; IG% 0.6 %; LYMPH % 5.8 %; LYMPH ABS # 1.25 K/uL (1.2-3.4); MONO % 5.6 %; NEUT % 87.9 %
[2017-03-21 06:32] LABS: BUN/CREATININE RATIO 16.8 (10-20); CALCIUM 9.1 mg/dl (8.5-10.1); CREATININE 0.82 mg/dl (0.60-1.40); POTASSIUM 3.8 mmol/L (3.5-5.1)
[2017-03-21 07:12] VITALS: BP 111/70; PULSE 49; PULSE 97; TEMP 36.6; O2SAT 97
[2017-03-21 07:14] VITALS: BP 147/98; PULSE 84; TEMP 37; O2SAT 97
[2017-03-21] MEDS: OLMESARTAN MEDOXOMIL 20 MG TAB PO SCH (07:19)
[2017-03-21] MEDS: ACETAMINOPHEN 325 MG TAB PO PRN ×2 (07:20→16:35)
[2017-03-21] MEDS: INSULIN ASPART 100 UNITS/ML 3 ML PEN SC SCH ×4 (07:57→20:58)
--- NOTE | 2017-03-21 09:49 | Progress Note ---
Medicine Progress Note Date & Time of Visit: Mar 21, 2017 at 09:43. Subjective patient seen resting in bed, comfortable, in good spirits states headache is improving denies fever/chills, sinus congestion/drainage, cough, shortness of breath, abdominal pain, nausea/vomiting, diarrhea denies any wounds eager for discharge Objective Last 8 Hrs Date Time Temp Pulse Resp B/P (MAP) Pulse Ox O2 Delivery O2 Flow Rate FiO2 03/21/17 08:15 Room Air 03/21/17 07:14 37.0 84 20 147/98 (114) 97 Room Air Physical Exam: General- oriented x 3 not in distress speaks in sentences with no effort Head- atraumatic Eyes- EOMI, anicteric ENT- nose: no erythema, drainage; oropharynx clear Neck- supple, no JVD, no adenopathy, no thyromegaly Lungs- clear to auscultation bilaterally no rales/wheezes Heart- regular rhythm; no murmurs, normal rate Abdomen- normal bowel sounds, soft, nontender, no masses or hepatosplenomegaly Extremities- no pretibial edema, no calf tenderness; peripheral pulses intact Neuro- alert, oriented x 3; PERRL, EOMI; no facial palsy; no dysarthria; motor 5 /5 bilaterally; no cogwheel rigidity; patellar DTRs +2/2; toes downgoing bilaterally; finger to nose intact bilaterally Skin- warm & dry Laboratory Results: Last 24 Hours Test 03/20/17 16:57 03/20/17 17:05 03/20/17 17:19 03/20/17 19:16 White Blood Count 24.58 K/uL Red Blood Count 4.61 M/uL Hemoglobin 13.4 g/dL Hematocrit 38.7 % Mean Corpuscular Volume 83.9 fL Mean Corpuscular Hemoglobin 29.1 pg Mean Corpuscular Hemoglobin Concent 34.6 g/dl Platelet Count 186 K/uL Mean Platelet Volume 9.1 fL Neutrophils (%) (Auto) 92.5 % Lymphocytes (%) (Auto) 2.5 % Monocytes (%) (Auto) 4.5 % Eosinophils (%) (Auto) 0.0 % Basophils (%) (Auto) 0.0 % Neutrophils # (Auto) 22.71 K/uL Lymphocytes # (Auto) 0.62 K/uL Monocytes # (Auto) 1.11 K/uL Eosinophils # (Auto) 0.00 K/uL Basophils # (Auto) 0.01 K/uL RDW Standard Deviation 40.5 fL RDW Coefficient of Variation 13.5 % Immature Granulocyte % (Auto) 0.5 % Immature Granulocyte # (Auto) 0.13 K/uL Prothrombin Time 13.4 SECONDS Prothromb Time International Ratio 1.2 Activated Partial Thromboplast Time 32.5 SECONDS Partial Thromboplastin Ratio 1.3 Sodium Level 136 mmol/L Potassium Level 3.7 mmol/L Chloride Level 105 mmol/L Carbon Dioxide Level 25 mmol/L Anion Gap 6.0 mmol/L Blood Urea Nitrogen 19 mg/dl Creatinine 1.10 mg/dl Est Creatinine Clear Calc Drug Dose 123.6 ml/min Estimated GFR () 96.8 Estimated GFR (Non- 83.5 BUN/Creatinine Ratio 17.0 Random Glucose 252 mg/dl Calcium Level 9.7 mg/dl Total Bilirubin 2.7 mg/dl Aspartate Amino Transf (AST/SGOT) 56 U/L Alanine Aminotransferase (ALT/SGPT) 82 U/L Alkaline Phosphatase 75 U/L Total Protein 7.7 gm/dl Albumin 3.4 gm/dl Globulin 4.3 gm/dl Albumin/Globulin Ratio 0.8 Bedside Lactic Acid Venous 1.63 mmol/L Urine Color ORANGE Urine Appearance CLEAR Urine pH 5.5 Urine Specific [place] 1.045 Urine Protein 2+ Urine Glucose (UA) 3+ Urine Ketones TRACE Urine Occult Blood NEG Urine Nitrite POS Urine Bilirubin NEG Urine Urobilinogen NEG Urine Leukocyte Esterase NEG Urine WBC (Auto) 1-5 /hpf Urine RBC (Auto) 5-10 /hpf Urine Hyaline Casts (Auto) 5-10 /lpf Urine Epithelial Cells (Auto) 10-20 /lpf Urine Bacteria (Auto) NEG Bedside Glucose 216 mg/dl Test 03/21/17 05:42 03/21/17 07:11 White Blood Count 21.42 K/uL Red Blood Count 4.40 M/uL Hemoglobin 13.1 g/dL Hematocrit 37.3 % Mean Corpuscular Volume 84.8 fL Mean Corpuscular Hemoglobin 29.8 pg Mean Corpuscular Hemoglobin Concent 35.1 g/dl Platelet Count 152 K/uL Mean Platelet Volume 9.0 fL Neutrophils (%) (Auto) 87.9 % Lymphocytes (%) (Auto) 5.8 % Monocytes (%) (Auto) 5.6 % Eosinophils (%) (Auto) 0.0 % Basophils (%) (Auto) 0.1 % Neutrophils # (Auto) 18.83 K/uL Lymphocytes # (Auto) 1.25 K/uL Monocytes # (Auto) 1.19 K/uL Eosinophils # (Auto) 0.01 K/uL Basophils # (Auto) 0.02 K/uL RDW Standard Deviation 42.0 fL RDW Coefficient of Variation 13.5 % Immature Granulocyte % (Auto) 0.6 % Immature Granulocyte # (Auto) 0.12 K/uL Sodium Level 138 mmol/L Potassium Level 3.8 mmol/L Chloride Level 107 mmol/L Carbon Dioxide Level 24 mmol/L Anion Gap 7.0 mmol/L Blood Urea Nitrogen 14 mg/dl Creatinine 0.82 mg/dl Est Creatinine Clear Calc Drug Dose 165.8 ml/min Estimated GFR () 128.2 Estimated GFR (Non- 110.6 BUN/Creatinine Ratio 16.8 Random Glucose 149 mg/dl Calcium Level 9.1 mg/dl Bedside Glucose 143 mg/dl Date/Time Source Procedure Growth Status 03/20/17 16:57 Blood Blood Culture Pending Received 03/20/17 16:46 Blood Blood Culture Pending Received Assessment & Plan GROUP A Beta STREP BACTEREMIA HISTORY OF SINUSITIS 2 WEEKS AGO Presented 03/19/17 with sinusitis symptoms, vomiting, fever; CT head and sinuses negative, received dose of IV Rocephin in ER yesterday for ? pneumonia then discharged to home on Biaxin, however CXR was negative, LP done 03/19/17- not consistent with meningitis, gram stain - rare WBC's, no organisms, CSF culture pending Returned to ER because blood cultures x 2 on 03/19/17 grew gram positive cocci Has leukocytosis (WBC 24.5K), but no sepsis (afebrile, no tachycardia, no tachypnea, lactic acid WNL) -- afebrile, leukocytosis improving initial blood cultures: group B strep, Sens PENDING repeat blood cultures: PENDING Echo: PENDING Workup 03/20/17- CXR- no infiltrate, UA mildly abnormal but not likely infected (+ nitrite, + epithelial cells) without UTI symptoms -- on Vancomycin and Levaquin Day 2 ID consult, awaiting recommendations HTN BP is stable Continue Benicar CLARKE Continue CPAP DM 2 Hold metformin Novolog sliding scale coverage DVT PROPHYLAXIS Lovenox SQ FULL CODE DISPOSITION Med/ surg Follows with Dr. Foss for primary care anticipate d/c when cleared by ID, antibiotics determined Current Inpatient Medications: Current Inpatient Medications Medications (Trade) Dose Ordered Sig/[place] Route Start Time Stop Time Status Last Admin Dose Admin Enoxaparin Sodium (Lovenox Inj) 40 mg Q24H SQ 03/20/17 21:00 04/19/17 20:59 03/20/17 20:00 40 MG Acetaminophen (Tylenol Tab) 650 mg Q4H PRN PO 03/20/17 18:15 04/19/17 18:14 03/21/17 07:20 650 MG Ondansetron HCl (Zofran Inj) 4 mg Q6H PRN IV 03/20/17 18:15 04/19/17 18:14 Vancomycin HCl (Consult) 1 ea UD PRN N/A 03/20/17 18:27 04/19/17 18:26 Insulin Aspart (novoLOG ASPART) SLIDING SCALE If C... ACHS SC 03/20/17 21:00 04/19/17 20:59 03/21/17 07:57 8 UNITS Glucose (Glucose 40% Gel) 15-30 GRAMS 15 GRAMS... UD PRN PO 03/20/17 18:15 04/19/17 18:14 Glucose (Glucose Chew Tab) 4-8 Tablets 4 Tabl... UD PRN PO 03/20/17 18:15 04/19/17 18:14 Dextrose (Dextrose 50% 50ML Syringe) 25-50ML OF 50% DW IV FOR... UD PRN IV 03/20/17 18:15 04/19/17 18:14 Glucagon (Glucagon Inj) 1 mg UD PRN SQ 03/20/17 18:15 04/19/17 18:14 Olmesartan (Benicar Tab) 20 mg DAILY PO 03/21/17 09:00 04/20/17 08:59 03/21/17 07:19 20 MG Levofloxacin 750 mg/Prmx 150 ml @ 100 mls/hr Q24H IV 03/21/17 18:00 03/30/17 17:59 Acetaminophen/ Butalbital/ Caffeine (Fioricet Tab) 1 tab Q4H PRN PO 03/20/17 18:45 04/19/17 18:44 03/20/17 22:01 1 TAB Vancomycin HCl 2000 mg/Sodium Chloride 540 ml @ 200 mls/hr Q12H IV 03/21/17 06:00 04/03/17 23:59 03/21/17 05:51 200 MLS/HR
--- NOTE | 2017-03-21 10:34 | Progress Note ---
Progress Note Date of Service Mar 21, 2017. Progress Note ID Consult Dictated #[id number] A/P: 1. GAS Septicemia 03/19 2. Elevated LFT's 3. Leukocytosis -Continue abx, will change to unasyn, follow repeat culture -Would suggest gb ultrasound with increased lfts and bilirubin, although denies symptoms, no clear source for GAS -Could ultimately transition to po Augmentin 875mg po bid if pcn sensitive, pt anxious to be d/c home, would assess RUQ ultrasound -thank you
--- NOTE | 2017-03-21 10:53 | INFECT. DISEASE CONSULTATION ---
DATE OF CONSULTATION: 03/21/2017 DATE OF CONSULTATION: 03/21/2017 REQUESTING PHYSICIAN: Dr. Pérez. HISTORY OF PRESENT ILLNESS: This is a 41-year-old gentleman who was admitted after he was called by the Emergency Room to inform him of positive blood cultures. He initially presented to the ER on the where he had a temperature of 104 at home. He did undergo LP during that ER stay and he had 1 white blood cell and no significant changes on his LP. His Gram stain and cultures so far are negative. Blood cultures were also obtained at that time. He was found initially in the ER to have a white blood cell count 21,000. He was given a 1 time dose of Rocephin, diagnosed with pneumonia despite a negative chest x-ray and discharged home with a prescription for Biaxin which he did not fill. In the interim, he was called with positive blood cultures in 2/2 sets with gram positive cocci. He subsequently came back to the Emergency Room yesterday for admission. Since admission to the hospital, he has been afebrile. He states overall he is feeling significantly better and is asking to go home. He was placed empirically on Levaquin and vancomycin. His white blood cell count was initially 24. It has improved to 21 today. His urinalysis shows only 1-5 WBCs with no bacteria. Blood cultures were repeated on the and are pending. A second chest x-ray is negative as well. He states he was having some sinus congestion a week to 2 weeks ago and did spend 1 day at home from work, but otherwise has been feeling well. He states all of those symptoms have resolved. He also did have a sore throat at that time. He did not take any antibiotics but states he has resolution of the symptoms. 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 He has had no significant travel. He has 3 cats at home but denies any scratches or any other open wounds to the skin. He denies any nausea, vomiting or diarrhea. He has no headache. He has no visual changes. He has no skin rashes. He denies any insect bites. He has no chest pain, cough or shortness of breath. All remaining review of systems are reviewed and are unremarkable. PAST MEDICAL HISTORY: Significant for type 2 diabetes, hypertension, obstructive sleep apnea on CPAP. PAST SURGICAL HISTORY: Significant for sinus surgery at age 24 and parathyroid surgery. FAMILY HISTORY: Noncontributory. SOCIAL HISTORY: Negative for tobacco use, alcohol use or drug use. ALLERGIES: He has no known drug allergies. CURRENT MEDICATIONS: Include Levaquin, Benicar, vancomycin, Lovenox, insulin, Fioricet, Tylenol, Zofran. PHYSICAL EXAMINATION: VITAL SIGNS: He is afebrile since admission to the hospital, pulse 84, respiratory rate is 20, blood pressure is 147/98, oxygen saturation is 97% on room air. GENERAL: He is awake, alert and oriented x3. He is in no acute distress. HEAD, EYES, EARS, NOSE, AND THROAT: Mucous membranes are moist. Extraocular muscles are intact. HEART: Regular. LUNGS: Clear bilaterally. ABDOMEN: Soft, nontender, nondistended. EXTREMITIES: There is no lower extremity edema bilaterally. SKIN: Without rash. LABORATORY STUDIES: CBC today reveals a white blood cell count 21.4, hemoglobin 13.1, platelets are 152. Chemistry panel reveals a sodium of 138, potassium 3.8, chloride 107, bicarb 24, BUN 14, creatinine 0.8, glucose is 143, total bilirubin is 2.7, AST is 56, ALT is 82. Urinalysis is unremarkable. He did have LFTs checked in the ER on the . At that time, his total bilirubin was 3.8. AST was normal at 33 and ALT was normal at 40. LP showed 1 WBC, glucose of 97 and a protein of 75. Flu swab on the was negative. Blood cultures from the are now growing group A strep. A CSF culture is negative. Repeat blood cultures from the are pending. Sinus CT done on the was unremarkable. A head CT on the was also unremarkable. Chest x-ray done on the did not show any active disease in the chest. ASSESSMENT AND PLAN: Group A strep septicemia of unclear etiology; however, with elevated bilirubin and LFTs gallbladder source could be entertained; however, the patient is asymptomatic. Repeat blood cultures are pending. I would discontinue his Levaquin and change the patient to Unasyn IV. If his repeat blood cultures are negative and he continues to improve he certainly could be discharged home on oral Augmentin 875 mg twice daily with food. However, I would recommend a gallbladder ultrasound secondary to elevated bilirubin and increasing LFTs. Thank you for this consultation.
[2017-03-21 11:26] VITALS: Ht 190.5 cm; Wt 117.9 kg
--- NOTE | 2017-03-21 14:01 | ECHOCARDIOGRAM REPORT ---
*NOTICE TO RECEIVING [employer] This information is strictly Confidential and protected under [place] law. [place] law prohibits you from making any further disclosure of this information unless further disclosure is expressly permitted by the written consent of the person to whom it pertains or is authorized by law. A general authorization for the release of medical or other information is not sufficient for this purpose. Hospital accepts no responsibility if the information is made available to any other person, INCLUDING THE PATIENT. Interpretation Summary * Name: DEONTE VILLALBA Study Date: 03/21/2017 11:24 AM BP: 133/84 mmHg * Patient Location: [facility] HR: 89 * : 1975 (M/d/yyyy) Gender: Male Height: 75 in * Age: 41 yrs Ethnicity: CA Weight: 259 lb * Ordering Physician: Jacqueline Harrison * Referring Physician: Self, Referred * Performed By: Zeynep Chacon RCS * * Reason For Study: BACTEREMIA / R/O ENDOCARDITIS * BSA: 2.4 m2 * The study was technically adequate. * -- Conclusions -- * The study was of technically good quality and the valves were well visualized. * There is mild concentric left ventricular hypertrophy. * The left ventricular wall motion is normal. * The LV Ejection Fraction = 60-65%. * There is trace mitral regurgitation. * The LV diastolic function is normal. * There is no evidence of vegetation within the limits of this imaging modality. * If clinical suspicion for endocarditis remains high, consider ZOHAIB. Procedure Details * A complete two-dimensional transthoracic echocardiogram was performed (2D, M-mode, Doppler and color flow Doppler). Left Ventricle * The left ventricle is normal in size. * There is mild concentric left ventricular hypertrophy. * Left ventricular systolic function is normal. * Ejection Fraction = 60-65%. * The left ventricular wall motion is normal. Right Ventricle * The right ventricle is normal size. * The right ventricular systolic function is normal as assessed by tricuspid annular plane systolic excursion (TAPSE) (normal >1.5 cm). Atria * The left atrial size is normal. * Right atrial size is normal. * There is no evidence of atrial septal defect, but resolution does not allow assessment for a patent foramen ovale. Mitral Valve * The mitral valve is normal. * There is no mitral valve stenosis. * There is trace mitral regurgitation. Tricuspid Valve * The tricuspid valve is normal. * There is no tricuspid stenosis. * Significant tricuspid regurgitation is absent. Aortic Valve * The aortic valve is trileaflet. * Aortic stenosis is absent. * There is no significant aortic regurgitation. Pulmonic Valve * The pulmonary valve is not well seen, but the Doppler examination is normal without significant regurgitation or stenosis. Great Vessels * The aortic root and proximal ascending aorta are normal sized. Pericardium/Pleural * There is no pericardial effusion. Great Vessels * Normal inferior vena cava diameter and respiratory variation suggests normal central venous pressure. Left Ventricular Diastolic Function * The LV diastolic function is normal. MMode 2D Measurements and Calculations IVSd 1.6 cm IVSs 1.7 cm LVIDd 4.5 cm LVIDs 3.6 cm LVPWd 1.5 cm LVPWs 1.2 cm IVS/LVPW 1.0 FS 20.5 % EDV(Teich) 92.2 ml ESV(Teich) 53.5 ml EF(Teich) 42.0 % EDV(cubed) 90.8 ml ESV(cubed) 45.7 ml EF(cubed) 49.7 % % IVS thick 9.9 % % LVPW thick -20.05 % LV mass(C)d 293.4 grams LV mass(C)dI 119.8 grams/m\S\2 LV mass(C)s 196.3 grams LV mass(C)sI 80.1 grams/m\S\2 SV(Teich) 38.7 ml SI(Teich) 15.8 ml/m\S\2 SV(cubed) 45.2 ml SI(cubed) 18.4 ml/m\S\2 Ao root diam 3.6 cm Ao root area 10.1 cm\S\2 LA dimension 4.4 cm LA/Ao 1.2 LVOT diam 2.0 cm LVOT area 3.1 cm\S\2 Doppler Measurements and Calculations MV E max salud 85.2 cm/sec MV A max salud 56.6 cm/sec MV E/A 1.5 MV P1/2t max salud 97.5 cm/sec MV P1/2t 43.8 msec MVA(P1/2t) 5.0 cm\S\2 MV dec slope 652.3 cm/sec\S\2 MV dec time 0.22 sec Ao V2 max 130.3 cm/sec Ao max PG 6.8 mmHg Ao max PG (full) 1.5 mmHg SANAZ(V,A) 2.7 cm\S\2 SANAZ(V,D) 2.7 cm\S\2 LV V1 max PG 5.3 mmHg LV V1 max 115.2 cm/sec MR max salud 495.9 cm/sec MR max PG 98.3 mmHg PA V2 max 97.5 cm/sec PA max PG 3.8 mmHg PI max salud 215.7 cm/sec PI max PG 18.6 mmHg PI dec slope 146.6 cm/sec\S\2 PI P1/2t 430.8 msec TR max salud 249.3 cm/sec
--- NOTE | 2017-03-21 14:16 | DIAGNOSTIC IMAGING REPORT ---
ABDOMINAL ULTRASOUND, RIGHT UPPER QUADRANT HISTORY: Elevated liver function tests. COMPARISON: None. FINDINGS: Hepatic echogenicity is increased. Liver morphology is normal. There is a 9 mm hepatic cyst. Small gallstones are noted within the gallbladder. There is no gallbladder wall thickening. There is no biliary ductal dilatation. The pancreatic body is normal. The head and tail are obscured. There is no right hydronephrosis. IMPRESSION: 1. Fatty infiltration of the liver. 2. Cholelithiasis. No gallbladder wall thickening. 3. No biliary ductal dilatation. Electronically signed by: Remigio Porras M.D. 03/21/2017 2:14 PM Dictated Date/Time: 03/21/2017 2:13 PM
[2017-03-21 14:49] VITALS: BP 167/109; PULSE 96; TEMP 36.9; O2SAT 98
[2017-03-21] MEDS ORDERED: LEVOFLOXACIN / D5W 750 MG in PREMIXED IN D5W 150 ML IV SCH (18:00)
[2017-03-21] MEDS: ENOXAPARIN 40 MG/0.4 ML SYR SQ SCH (20:58)
[2017-03-21 22:17] VITALS: PULSE 87; O2SAT 97
[2017-03-22 00:31] VITALS: BP 115/71; PULSE 82; TEMP 36.8; O2SAT 97
[2017-03-22 05:14] VITALS: BP 125/75; PULSE 63; TEMP 36.7; O2SAT 96
[2017-03-22] MEDS: VANCOMYCIN TROUGH SCH ×2 (05:30→05:36)
[2017-03-22] MEDS: VANCOMYCIN INJ 2,000 MG in SODIUM CHLORIDE 0.9% 500ML 500 ML IV SCH (06:14)
[2017-03-22 06:23] LABS: BASO % 0.2 %; BASO ABS # 0.03 K/uL (0-0.2); COMPLETE YES; EOS % 0.2 %; HEMATOCRIT 37.2 % (42-52); IG% 1.8 %; LYMPH % 18.5 %; LYMPH ABS # 2.31 K/uL (1.2-3.4); MEAN CELL VOLUME 84.5 fL (80-100); MEAN CORPUSCULAR HEMOGLOBIN 29.1 pg (25-34); MEAN CORPUSCULAR HGB CONC 34.4 g/dl (32-36); MEAN PLATELET VOLUME 9.9 fL (7.4-10.4); MONO % 10.7 %; NEUT % 68.6 %; PLATELET COUNT 156 K/uL (130-400); WHITE BLOOD COUNT 12.47 K/uL (4.8-10.8)
[2017-03-22 07:01] LABS: BUN/CREATININE RATIO 12.4 (10-20); CALCIUM 9.1 mg/dl (8.5-10.1); CREATININE 0.89 mg/dl (0.60-1.40); POTASSIUM 3.4 mmol/L (3.5-5.1)
[2017-03-22 07:37] VITALS: BP 155/103; PULSE 87; TEMP 36.8; O2SAT 96
[2017-03-22] MEDS: OLMESARTAN MEDOXOMIL 20 MG TAB PO SCH (07:52)
[2017-03-22 08:00] VITALS: O2SAT 96
[2017-03-22] MEDS: INSULIN ASPART 100 UNITS/ML 3 ML PEN SC SCH (08:43)
[2017-03-22] MEDS: ACETAMINOPHEN 325 MG TAB PO PRN (09:30)
[2017-03-22] MEDS ORDERED: POTASSIUM CHLORIDE 10 MEQ TABCR PO ONE (10:00)
--- NOTE | 2017-03-22 11:33 | Progress Note ---
Medicine Progress Note Date & Time of Visit: Mar 22, 2017 at 11:28. Subjective patient seen resting in bed, comfortable, sitting up states he feels fine overall denies headache, neck pain, chest pain, dyspnea, nasal congestion/discharge, sore throat, cough, shortness of breath, abdominal pain, nausea/vomiting diarrhea, changes in urination denies other symptoms states he is ready for discharge and would like to be discharged today Objective Last 8 Hrs Date Time Temp Pulse Resp B/P (MAP) Pulse Ox O2 Delivery O2 Flow Rate FiO2 03/22/17 08:00 96 Room Air 03/22/17 07:37 36.8 87 16 155/103 (120) 96 Room Air 03/22/17 05:14 36.7 63 16 125/75 (92) 96 Room Air Physical Exam: General- oriented x 3 not in distress speaks in sentences with no effort Eyes-anicteric ENT- nose: no erythema, drainage; oropharynx clear Neck-no JVD Lungs- clear breath sounds bilaterally Heart- regular rhythm; no murmurs, normal rate Abdomen- normal bowel sounds, soft, nontender Extremities- no pretibial edema, no calf tenderness Neuro- alert, oriented x 3; no gross focal deficits Skin- warm & dry Laboratory Results: Last 24 Hours Test 03/21/17 16:00 03/21/17 20:17 03/22/17 05:36 03/22/17 07:18 Bedside Glucose 171 mg/dl 149 mg/dl 133 mg/dl White Blood Count 12.47 K/uL Red Blood Count 4.40 M/uL Hemoglobin 12.8 g/dL Hematocrit 37.2 % Mean Corpuscular Volume 84.5 fL Mean Corpuscular Hemoglobin 29.1 pg Mean Corpuscular Hemoglobin Concent 34.4 g/dl Platelet Count 156 K/uL Mean Platelet Volume 9.9 fL Neutrophils (%) (Auto) 68.6 % Lymphocytes (%) (Auto) 18.5 % Monocytes (%) (Auto) 10.7 % Eosinophils (%) (Auto) 0.2 % Basophils (%) (Auto) 0.2 % Neutrophils # (Auto) 8.55 K/uL Lymphocytes # (Auto) 2.31 K/uL Monocytes # (Auto) 1.33 K/uL Eosinophils # (Auto) 0.03 K/uL Basophils # (Auto) 0.03 K/uL RDW Standard Deviation 41.8 fL RDW Coefficient of Variation 13.5 % Immature Granulocyte % (Auto) 1.8 % Immature Granulocyte # (Auto) 0.22 K/uL Sodium Level 138 mmol/L Potassium Level 3.4 mmol/L Chloride Level 103 mmol/L Carbon Dioxide Level 25 mmol/L Anion Gap 10.0 mmol/L Blood Urea Nitrogen 11 mg/dl Creatinine 0.89 mg/dl Est Creatinine Clear Calc Drug Dose 152.7 ml/min Estimated GFR () 124.0 Estimated GFR (Non- 107.0 BUN/Creatinine Ratio 12.4 Random Glucose 130 mg/dl Calcium Level 9.1 mg/dl Total Bilirubin 1.8 mg/dl Direct Bilirubin 0.5 mg/dl Aspartate Amino Transf (AST/SGOT) 89 U/L Alanine Aminotransferase (ALT/SGPT) 153 U/L Alkaline Phosphatase 93 U/L Total Protein 7.2 gm/dl Albumin 2.9 gm/dl Vancomycin Level Trough 7.9 mcg/ml Test 03/22/17 10:32 Assessment & Plan GROUP A BETA STREP BACTEREMIA HISTORY OF SINUSITIS 2 WEEKS AGO Presented 03/19/17 with sinusitis symptoms, vomiting, fever; CT head and sinuses negative, received dose of IV Rocephin in ER yesterday for ? pneumonia then discharged to home on Biaxin, however CXR was negative, LP done 03/19/17- not consistent with meningitis, gram stain - rare WBC's, no organisms, CSF culture pending Returned to ER because blood cultures x 2 on 03/19/17 grew gram positive cocci Has leukocytosis (WBC 24.5K), but no sepsis (afebrile, no tachycardia, no tachypnea, lactic acid WNL) initial blood cultures 03/19: group A Beta strep, pansensitive repeat blood cultures 03/21: negative so far Echo: * -- Conclusions -- * The study was of technically good quality and the valves were well visualized. * There is mild concentric left ventricular hypertrophy. * The left ventricular wall motion is normal. * The LV Ejection Fraction = 60-65%. * There is trace mitral regurgitation. * The LV diastolic function is normal. * There is no evidence of vegetation within the limits of this imaging modality. * If clinical suspicion for endocarditis remains high, consider ZOHAIB. Other Workup 03/20/17- CXR- no infiltrate, UA mildly abnormal but not likely infected -- given Vancomycin and Levaquin x2 days -- afebrile, leukocytosis improved from 24k to 12k clinically improved -- ID consulted recommend Augmentin 875mg BID x 2 weeks may need ff up blood cultures after antibiotic course to confirm clearance of bacteremia advised to take probiotics MILD HYPOKALEMIA - K 3.4 - PO K ordered - repeat K on ff up ELEVATED LFTS - total jake 2.7 --> 1.8 ast 56 --> 89 alt 82 --> 153 alk phos 75 --> 93 - Gallbladder US: 1. Fatty infiltration of the liver. 2. Cholelithiasis. No gallbladder wall thickening. 3. No biliary ductal dilatation. - bilirubin improving ast/alt increasing - patient asymptomatic - repeat LFTs on ff up with PCP ff up cholelithiasis patient advised to avoid tylenol, alcohol HTN BP is stable Continue Benicar CLARKE Continue CPAP DM 2 continue Metformin DVT PROPHYLAXIS Lovenox SQ FULL CODE DISPOSITION d/c today ff up with PCP in 1 week Current Inpatient Medications: Current Inpatient Medications Medications (Trade) Dose Ordered Sig/[place] Route Start Time Stop Time Status Last Admin Dose Admin Enoxaparin Sodium (Lovenox Inj) 40 mg Q24H SQ 03/20/17 21:00 04/19/17 20:59 03/21/17 20:58 40 MG Acetaminophen (Tylenol Tab) 650 mg Q4H PRN PO 03/20/17 18:15 04/19/17 18:14 03/22/17 09:30 650 MG Ondansetron HCl (Zofran Inj) 4 mg Q6H PRN IV 03/20/17 18:15 04/19/17 18:14 Vancomycin HCl (Consult) 1 ea UD PRN N/A 03/20/17 18:27 04/19/17 18:26 Insulin Aspart (novoLOG ASPART) SLIDING SCALE If C... ACHS SC 03/20/17 21:00 04/19/17 20:59 03/22/17 08:43 3 UNITS Glucose (Glucose 40% Gel) 15-30 GRAMS 15 GRAMS... UD PRN PO 03/20/17 18:15 04/19/17 18:14 Glucose (Glucose Chew Tab) 4-8 Tablets 4 Tabl... UD PRN PO 03/20/17 18:15 04/19/17 18:14 Dextrose (Dextrose 50% 50ML Syringe) 25-50ML OF 50% DW IV FOR... UD PRN IV 03/20/17 18:15 04/19/17 18:14 Glucagon (Glucagon Inj) 1 mg UD PRN SQ 03/20/17 18:15 04/19/17 18:14 Olmesartan (Benicar Tab) 20 mg DAILY PO 03/21/17 09:00 04/20/17 08:59 03/22/17 07:52 20 MG Levofloxacin 750 mg/Prmx 150 ml @ 100 mls/hr Q24H IV 03/21/17 18:00 03/30/17 17:59 03/21/17 17:30 100 MLS/HR Acetaminophen/ Butalbital/ Caffeine (Fioricet Tab) 1 tab Q4H PRN PO 03/20/17 18:45 04/19/17 18:44 03/20/17 22:01 1 TAB Vancomycin HCl 2000 mg/Sodium Chloride 540 ml @ 200 mls/hr Q12H IV 03/21/17 06:00 04/03/17 23:59 03/22/17 06:14 200 MLS/HR
[2017-03-22] MEDS ORDERED: MCRK20 PO (11:44)
[2017-03-22] MEDS ORDERED: AMOX875T PO (11:44)
--- NOTE | 2017-03-22 11:47 | Discharge Instructions ---
Discharge Instructions Date of Service Mar 22, 2017. Admission Reason for Admission: Bacteremia Discharge Discharge Diagnosis / Problem: GROUP A BETA STREPTOCOCCUS BACTEREMIA Discharge Goals Goal(s): Diagnostic testing, Therapeutic intervention Activity Recommendations Activity Limitations: as noted below (INCREASE ACTIVITY GRADUALLY TOLERATED , NO HEAVY EXERTION) Lifting Limitations: until after follow-up appointment Exercise/Sports Limitations: until after follow-up appointment . Instructions / Follow-Up Instructions / Follow-Up PLEASE REVIEW YOUR NEW MEDICATION LIST AND FOLLOW INSTRUCTIONS CAREFULLY. TAKE PROBIOTICS WHILE TAKING ANTIBIOTICS AND AT LEAST 1 WEEK AFTER FINISHING THE ANTIBIOTIC COURSE. DRINK PLENTY OF FLUIDS. DO NOT TAKE TYLENOL, DRINK ALCOHOL UNTIL RE-EVALUATION BY PRIMARY CARE PHYSICIAN. CALL PRIMARY CARE PHYSICIAN OR RETURN TO ER IMMEDIATELY IF WITH RECURRENCE OF SYMPTOMS, ABDOMINAL PAIN, NAUSEA/VOMITING. FOLLOW UP WITH DR. ROBLERO ON Friday03/25/17 AT 10:45AM. Current Hospital Diet Patient's current hospital diet: Diabetes Type 2 Diet, AHA Diet (Heart Healthy) Discharge Diet Recommended Diet: AHA Diet (Heart Healthy), Diabetes Type 2 Diet Procedures Procedures Performed: 2D ECHOCARDIOGRAM, GALL BLADDER ULTRASOUND Pending Studies Studies pending at discharge: yes List of pending studies: REPEAT BLOOD WORK C/O PRIMARY CARE PHYSICIAN Medical Emergencies . Who to Call and When: Medical Emergencies: If at any time you feel your situation is an emergency, please call 911 immediately. . Non-Emergent Contact Non-Emergency issues call your: Primary Care Provider Call Non-Emergent contact if: you have a fever, your pain is not controlled, your pain is worsening, you have any medication questions . . "Provider Documentation" section prepared by Jeremy Mancilla. . VTE Core Measure Inpt VTE Proph given/why not?: Enoxaparin (Lovenox)SQ
--- NOTE | 2017-03-22 11:57 | Discharge Summary ---
Discharge Summary Date of Service Mar 22, 2017. Discharge Summary Admission Date: Mar 20, 2017 at 17:56 Discharge Date: Mar 22, 2017 Discharge Disposition: Home Principal Diagnosis: GROUP A BETA STREP BACTEREMIA; HISTORY OF SINUSITIS 2 WEEKS AGO Secondary Diagnoses/Problems: Please refer to hospital course below. Procedures: ECHO: * -- Conclusions -- * The study was of technically good quality and the valves were well visualized. * There is mild concentric left ventricular hypertrophy. * The left ventricular wall motion is normal. * The LV Ejection Fraction = 60-65%. * There is trace mitral regurgitation. * The LV diastolic function is normal. * There is no evidence of vegetation within the limits of this imaging modality. * If clinical suspicion for endocarditis remains high, consider ZOHAIB. ABDOMINAL ULTRASOUND, RIGHT UPPER QUADRANT HISTORY: Elevated liver function tests. COMPARISON: None. FINDINGS: Hepatic echogenicity is increased. Liver morphology is normal. There is a 9 mm hepatic cyst. Small gallstones are noted within the gallbladder. There is no gallbladder wall thickening. There is no biliary ductal dilatation. The pancreatic body is normal. The head and tail are obscured. There is no right hydronephrosis. IMPRESSION: 1. Fatty infiltration of the liver. 2. Cholelithiasis. No gallbladder wall thickening. 3. No biliary ductal dilatation. CHEST ONE VIEW PORTABLE CLINICAL HISTORY: Sepsis COMPARISON STUDY: 03/19/2017 FINDINGS: The cardiac and mediastinal contours are normal. There is no evidence of focal pulmonary consolidation. There is no evidence of failure. No pleural effusions are visualized.[ IMPRESSION: No active disease in the chest. Consultations: Infectious Disease Dr. Borjas Pending Studies/Follow-Up: Repeat K and LFTs on ff up with PCP this week; Repeat blood cultures after antibiotic course; Please refer to hospital course below for further details. Medication Reconciliation New Medications: Amoxicillin & Pot Clavulanate (Augmentin 875-125 mg) 1 Tab Tab 875 MG PO BID for 14 Days, #28 TAB take with food Potassium Chloride (Klor-Con M20) 20 Meq Tabcr 1 TAB PO DAILY for 3 Days, #3 TABS 0 Refills Continued Medications: Metformin Hcl Er (Glucophage Er) 500 Mg Tab 2 TAB PO DAILY for 90 Days, #180 TAB 3 Refills Multivitamin (Multivitamin) Tab 1 TAB PO DAILY, TAB Olmesartan Medoxomil (Benicar) 40 Mg Tab 20 MG PO DAILY, TAB Discontinued Medications: Clarithromycin (Biaxin) 500 Mg Tab 1 TAB PO BID for 10 Days, #20 TAB Admission Information HPI (per Admitting provider): This is a 41 y/o male with PMH of HTN, DM 2, CLARKE on CPAP, and other problems listed below who was sent to the ED for positive blood cultures. Patient states 1.5 weeks ago he developed what he felt was a sinus infection with green nasal discharge, sore throat, clogged ears. He was not seen by a physician. Then yesterday while at work he developed vomiting, went home and noted fever of 104 F and painful swollen lymph noted on the left neck. He was seen in the ER yesterday, was tachycardic and febrile to 37.9, labs showed leukocytosis (WBC 21.3K). Pt was treated with IV Rocephin for possible pneumonia and sent home on Biaxin (did not get to take yet), however CXR read by radiologist with no evidence of pneumonia. Patient had LP done which was not concerning for meningitis, gram stain with few WBC's and no organisms. Blood cultures x 2 grew gram positive cocci, so patient was called to return to ER. Pt reports being afebrile this morning (did take Tylenol this am for ELLIS). Has frontal headache starting after lumbar puncture done yesterday, which is improving with Motrin given in ER. Still having nasal discharge which is improving to yellow color. Ear and throat symptoms resolved. He notes chronic neck stiffness. N/V is resolved and he feels ready to eat. He feels generally weak and achy in the upper body. Denies vision change, tooth ache, chest pain, SOB, cough, abdominal pain, diarrhea, dysuria, frequency, rash, tick or other bug bite. No recent abx until yesterday. No recent hospitalization. Reports hx of frequent sinusitis for which he underwent sinus surgery. Physical Exam (per Admitting): General Appearance: WD/WN, no apparent distress, + pertinent finding (alert 41 year old male, lying in bed, non-toxic appearing) Head: normocephalic, atraumatic Eyes: normal inspection, PERRL, sclerae normal ENT: hearing grossly normal, TMs normal, pharynx normal, + nasal congestion , + pertinent finding (teeth are in good repair, no obvious caries. + bilateral frontal sinus tenderness. no maxillary sinus tenderness. ) Neck: supple, trachea midline, + adenopathy present (left anterior cervical lymphadenopathy) Respiratory/Chest: lungs clear, normal breath sounds, no respiratory distress, no accessory muscle use, + pertinent finding (no wheezing, crackles, rhonchi) Cardiovascular: regular rate, rhythm, no murmur Abdomen/GI: normal bowel sounds, non tender, soft Back: no CVA tenderness Extremities/Musculoskelatal: no calf tenderness, no pedal edema Neurologic/Psych: alert, normal mood/affect, oriented x 3 Skin: normal color, warm/dry, no rash (no rash on the trunk or extremities) Hospital Course GROUP A BETA STREP BACTEREMIA HISTORY OF SINUSITIS 2 WEEKS AGO Presented 03/19/17 with sinusitis symptoms, vomiting, fever; CT head and sinuses negative, received dose of IV Rocephin in ER pneumonia then discharged to home on Biaxin, however CXR was negative, LP done 03/19/17- not consistent with meningitis, gram stain - rare WBC's, no organisms, CSF culture negative Returned to ER because blood cultures x 2 on 03/19/17 grew gram positive cocci Has leukocytosis (WBC 24.5K), but no sepsis (afebrile, no tachycardia, no tachypnea, lactic acid WNL) -- initial blood cultures at the ER 03/19/17: group A Beta strep, pansensitive repeat blood cultures on admission 03/21: negative so far Echo: * -- Conclusions -- * The study was of technically good quality and the valves were well visualized. * There is mild concentric left ventricular hypertrophy. * The left ventricular wall motion is normal. * The LV Ejection Fraction = 60-65%. * There is trace mitral regurgitation. * The LV diastolic function is normal. * There is no evidence of vegetation within the limits of this imaging modality. * If clinical suspicion for endocarditis remains high, consider ZOHAIB. Other Workup 03/20/17- CXR- no infiltrate, UA mildly abnormal but not likely infected -- given Vancomycin and Levaquin x2 days -- afebrile, leukocytosis improved from 24k to 12k clinically improved overall -- ID consulted Dr. Borjas recommend Augmentin 875mg BID x 2 weeks ff up blood cultures after antibiotic course to confirm clearance of bacteremia advised to take probiotics MILD HYPOKALEMIA - K 3.4 - PO K ordered - repeat K on ff up ELEVATED LFTS - total jake 2.7 --> 1.8 dir jake 0.4--> 0.5 ast 56 --> 89 alt 82 --> 153 alk phos 75 --> 93 - Gallbladder US: 1. Fatty infiltration of the liver. 2. Cholelithiasis. No gallbladder wall thickening. 3. No biliary ductal dilatation. - bilirubin improving ast/alt increasing - but patient asymptomatic - repeat LFTs on ff up with PCP ff up cholelithiasis patient advised to avoid tylenol, alcohol HTN BP is stable Continue Benicar CLARKE Continue CPAP DM 2 continue Metformin DISPOSITION d/c home ff up with PCP in 1 week Total time spent on discharge = 40 minutes This includes examination of the patient, discharge planning, medication reconciliation, and communication with other providers. Discharge Instructions Discharge Instructions Date of Service Mar 22, 2017. Admission Reason for Admission: Bacteremia Discharge Discharge Diagnosis / Problem: GROUP A BETA STREPTOCOCCUS BACTEREMIA Discharge Goals Goal(s): Diagnostic testing, Therapeutic intervention Activity Recommendations Activity Limitations: as noted below (INCREASE ACTIVITY GRADUALLY TOLERATED , NO HEAVY EXERTION) Lifting Limitations: until after follow-up appointment Exercise/Sports Limitations: until after follow-up appointment . Instructions / Follow-Up Instructions / Follow-Up PLEASE REVIEW YOUR NEW MEDICATION LIST AND FOLLOW INSTRUCTIONS CAREFULLY. TAKE PROBIOTICS WHILE TAKING ANTIBIOTICS AND AT LEAST 1 WEEK AFTER FINISHING THE ANTIBIOTIC COURSE. DRINK PLENTY OF FLUIDS. DO NOT TAKE TYLENOL, DRINK ALCOHOL UNTIL RE-EVALUATION BY PRIMARY CARE PHYSICIAN. CALL PRIMARY CARE PHYSICIAN OR RETURN TO ER IMMEDIATELY IF WITH RECURRENCE OF SYMPTOMS, ABDOMINAL PAIN, NAUSEA/VOMITING. FOLLOW UP WITH DR. ROBLERO ON Friday03/25/17 AT 10:45AM. Current Hospital Diet Patient's current hospital diet: Diabetes Type 2 Diet, AHA Diet (Heart Healthy) Discharge Diet Recommended Diet: AHA Diet (Heart Healthy), Diabetes Type 2 Diet Procedures Procedures Performed: 2D ECHOCARDIOGRAM, GALL BLADDER ULTRASOUND Pending Studies Studies pending at discharge: yes List of pending studies: REPEAT BLOOD WORK C/O PRIMARY CARE PHYSICIAN Medical Emergencies . Who to Call and When: Medical Emergencies: If at any time you feel your situation is an emergency, please call 911 immediately. . Non-Emergent Contact Non-Emergency issues call your: Primary Care Provider Call Non-Emergent contact if: you have a fever, your pain is not controlled, your pain is worsening, you have any medication questions . . "Provider Documentation" section prepared by Jeremy Mancilla. . VTE Core Measure Inpt VTE Proph given/why not?: Enoxaparin (Lovenox)SQ
[2017-03-22 12:05] VITALS: BP 155/103; PULSE 87; TEMP 36.8; O2SAT 96
== END 2017-03-22 14:31 | disposition home or self-care (01) | DRG 871 ==
LOC: C.EDB 14:58 → C.MED 17:56 → ENRESERV 18:03 → C.MED 18:53 → UNDOADMIN 18:53
PROVIDERS: ADMIT Hospitalist; ATTEND Internal Medicine
PROC: 00933ZX Drainage of Intracranial Epidural Space, Percutaneous Approach, Diagnostic (ICD-10-PCS; principal; 2017-03-19)
DX: R78.81 Bacteremia (principal); B95.0 Streptococcus, group A, as the cause of diseases classified elsewhere; R51 Headache; D72.829 Elevated white blood cell count, unspecified; E87.6 Hypokalemia; K80.20 Calculus of gallbladder without cholecystitis without obstruction; E11.9 Type 2 diabetes mellitus without complications; I10 Essential (primary) hypertension; G47.33 Obstructive sleep apnea (adult) (pediatric); Z51.81 Encounter for therapeutic drug level monitoring; Z79.899 Other long term (current) drug therapy; Z79.84 Long term (current) use of oral hypoglycemic drugs; Z83.3 Family history of diabetes mellitus; Z82.49 Family history of ischemic heart disease and other diseases of the circulatory system; J18.1 Lobar pneumonia, unspecified organism; F41.9 Anxiety disorder, unspecified

== ENCOUNTER → 2017-08-25 | Outpatient (CLI) | payer BC ==
[~2017-08-25] MED LIST changes: +ASPI81TA28 PO; +ATOR-22 PO; -CLAR500T3 PO; -GLC500 PO; +MCRK20 PO; +METF500T5 PO
--- NOTE | 2017-08-25 14:51 | DIAGNOSTIC IMAGING REPORT ---
CERVICAL WITHOUT CONTRAST CLINICAL HISTORY: 41 years-old Male presenting with OSTEOARTHRITIS OF SPINE,CERVICAL RADICULOPATHY. TECHNIQUE: Multisequence, multiplanar MR imaging of the cervical spine was performed without the use of intravenous contrast. IV contrast: None. COMPARISON: None. FINDINGS: Localizer images: Unremarkable. Straightening of normal cervical lordosis likely positional. Vertebral bodies maintain normal height, alignment, and bone marrow signal intensity. Intervertebral discs demonstrate mild diffuse desiccation without height loss at diminutive disc osteophyte complexes noted at C4-5 through C6-7. At C4-5, no significant neural foraminal or spinal canal narrowing. At C5-6, disc osteophyte complex/uncovertebral hypertrophy results in mild right neural foraminal narrowing. Minimal contouring of the right anterior aspect of the spinal cord with effacement of the right lateral recess. At C6-7, disc osteophyte complex and uncovertebral hypertrophy result in less significant effacement of the anterior thecal sac though greater neural foraminal narrowing noted, moderate narrowing bilaterally. The cervical spinal cord maintains normal morphology apart from contouring at C5-6. Normal signal intensity of the spinal cord. No convincing evidence of impingement. Craniocervical junction normal. No paraspinal muscular edema. No epidural collection. IMPRESSION: 1. Mild multilevel degenerative changes most significant at C5-6 and C6-7. Effacement of the spinal canal most severe at C5-6 though no convincing evidence of spinal cord edema or impingement. Neural foraminal narrowing most significant at C6-7. Electronically signed by: Rogelio Monge M.D. 08/25/2017 2:49 PM Dictated Date/Time: 08/25/2017 2:44 PM
== END | disposition home or self-care (01) ==
LOC: C.MRI 13:33
PROVIDERS: ATTEND Internal Medicine
DX: M47.22 Other spondylosis with radiculopathy, cervical region (principal)

== ENCOUNTER 2017-08-26 11:39 | Emergency (ER) | payer BC ==
[~2017-08-26] VITALS: Ht 182.9 cm; Wt 124.4 kg
[~2017-08-26 11:39] MED LIST changes: -ASPI81TA28 PO; -ATOR-22 PO
[2017-08-26 11:40] VITALS: TEMP 36.8; Ht 182.9 cm; Wt 124.4 kg
[2017-08-26] MEDS ORDERED: MECLIZINE HCL 25 MG TAB PO STA (11:53)
[2017-08-26] MEDS ORDERED: SODIUM CHLORIDE 0.9% 1000ML 1,000 ML IV STA (11:53)
[2017-08-26] MEDS ORDERED: ATOR-22 PO (12:00)
[2017-08-26] MEDS ORDERED: ASPI81TA28 PO (12:00)
[2017-08-26 12:34] LABS: BASO % 0.3 %; BASO ABS # 0.05 K/uL (0-0.2); EOS ABS # 0.17 K/uL (0-0.5); HEMATOCRIT 43.6 % (42-52); HEMOGLOBIN 16.1 g/dL (14.0-18.0); IG# 0.25 K/uL (0.00-0.02); LYMPH % 23.4 %; LYMPH ABS # 4.11 K/uL (1.2-3.4); MEAN CELL VOLUME 80.7 fL (80-100); MEAN CORPUSCULAR HEMOGLOBIN 29.8 pg (25-34); MEAN CORPUSCULAR HGB CONC 36.9 g/dl (32-36); MEAN PLATELET VOLUME 9.3 fL (7.4-10.4); MONO % 7.2 %; MONO ABS # 1.27 K/uL (0.11-0.59); NEUT % 66.7 %; NEUT ABS # 11.68 K/uL (1.4-6.5); PLATELET COUNT 252 K/uL (130-400); RED CELL DISTRIBUTION WIDTH CV 12.9 % (11.5-14.5); RED CELL DISTRIBUTION WIDTH SD 37.8 fL (36.4-46.3); WHITE BLOOD COUNT 17.53 K/uL (4.8-10.8)
[2017-08-26 12:50] LABS: CALCIUM 10.3 mg/dl (8.5-10.1); CREATININE 0.97 mg/dl (0.60-1.40); POTASSIUM 3.1 mmol/L (3.5-5.1)
[2017-08-26 14:11] VITALS: PULSE 98; O2SAT 97
--- NOTE | 2017-08-26 14:18 | EMERGENCY ROOM VISIT NOTE ---
History First contact with patient: 11:48 Chief Complaint: DIZZY Stated Complaint: VERTIGO History of Present Illness The patient is a 41 year old male who presents to the Emergency Room via BLS with complaints of vertigo. The patient states that he has a history of vertigo for which she normally takes meclizine. The patient states that he got up this morning at 7 AM and had some vertigo and took a meclizine. The patient states that he felt better he went to work. He started getting the dizziness back again and therefore he looked it up on the Internet and there was a new maneuver which involves kneeling down and putting her head in between your legs like you were doing a somersault. The patient went into the bathroom at work and tried the maneuver. He states the dizziness got much worse. He is very nauseated and if he moves his head at all he vomits. They called the ambulance to bring him to the emergency room. The patient denies any chest pain, shortness of breath, heart palpitations. The patient denies any recent head injuries. The patient did have an MRI yesterday for neck problems. Review of Systems 10 system review was performed and was negative unless stated otherwise history of present illness. Past Medical/Surgical History Medical Problems: (1) Anxiety (2) Bacteremia (3) DM type 2 (diabetes mellitus, type 2) (4) HTN (hypertension) (5) CLARKE on CPAP Surgical Problems: (1) H/O sinus surgery (2) History of parathyroid surgery Family History Diabetes mellitus GRANDFATHER GRANDMOTHER FH: CAD (coronary artery disease) FATHER GRANDFATHER Social History Smoking Status: Never Smoker Alcohol Use: occasionally Drug Use: none Marital Status: Housing Status: lives with family Occupation Status: employed Current/Historical Medications Scheduled Aspirin (Aspirin Ec), 81 MG PO DAILY Atorvastatin (Lipitor), 20 MG PO QPM Metformin Hcl Er (Glucophage Er), 500 MG PO DAILY Multivitamin (Multivitamin), 1 TAB PO DAILY Olmesartan Medoxomil (Benicar), 20 MG PO DAILY Physical Exam Vital Signs Date Time Temp Pulse Resp B/P (MAP) Pulse Ox O2 Delivery O2 Flow Rate FiO2 08/26/17 14:11 98 18 188/109 97 Room Air 08/26/17 12:16 86 20 145/74 100 Room Air 08/26/17 11:46 88 08/26/17 11:40 36.8 93 18 153/113 99 Room Air Physical Exam GENERAL: 41-year-old white male appears sweaty holding an emesis bag in front of him. MENTAL Status: Alert and oriented 3. EYES: PERRLA. EOMs intact. EARS: Canals clear. TMs without fluid level noted. NECK: Supple, no lymphadenopathy noted. No carotid bruits noted. LUNGS: Clear auscultation without wheezes rales or rhonchi. CARDIAC: Regular rate and rhythm without murmur. Pulses is full and equal throughout. Medical Decision & Procedures Laboratory Results 08/26/17 12:10 Red Blood Count 5.40, Mean Corpuscular Volume 80.7, Mean Corpuscular Hemoglobin 29.8, Mean Corpuscular Hemoglobin Concent 36.9, Mean Platelet Volume 9.3, Neutrophils (%) (Auto) 66.7, Lymphocytes (%) (Auto) 23.4, Monocytes (%) (Auto) 7.2, Eosinophils (%) (Auto) 1.0, Basophils (%) (Auto) 0.3, Neutrophils # (Auto) 11.68, Lymphocytes # (Auto) 4.11, Monocytes # (Auto) 1.27, Eosinophils # (Auto) 0.17, Basophils # (Auto) 0.05 08/26/17 12:10 Test 08/26/17 12:10 White Blood Count 17.53 K/uL (4.8-10.8) Red Blood Count 5.40 M/uL (4.7-6.1) Hemoglobin 16.1 g/dL (14.0-18.0) Hematocrit 43.6 % (42-52) Mean Corpuscular Volume 80.7 fL (80-100) Mean Corpuscular Hemoglobin 29.8 pg (25-34) Mean Corpuscular Hemoglobin Concent 36.9 g/dl (32-36) Platelet Count 252 K/uL (130-400) Mean Platelet Volume 9.3 fL (7.4-10.4) Neutrophils (%) (Auto) 66.7 % Lymphocytes (%) (Auto) 23.4 % Monocytes (%) (Auto) 7.2 % Eosinophils (%) (Auto) 1.0 % Basophils (%) (Auto) 0.3 % Neutrophils # (Auto) 11.68 K/uL (1.4-6.5) Lymphocytes # (Auto) 4.11 K/uL (1.2-3.4) Monocytes # (Auto) 1.27 K/uL (0.11-0.59) Eosinophils # (Auto) 0.17 K/uL (0-0.5) Basophils # (Auto) 0.05 K/uL (0-0.2) RDW Standard Deviation 37.8 fL (36.4-46.3) RDW Coefficient of Variation 12.9 % (11.5-14.5) Immature Granulocyte % (Auto) 1.4 % Immature Granulocyte # (Auto) 0.25 K/uL (0.00-0.02) Anion Gap 10.0 mmol/L (3-11) Est Creatinine Clear Calc Drug Dose 137.9 ml/min Estimated GFR () 112.7 Estimated GFR (Non- 97.3 BUN/Creatinine Ratio 17.9 (10-20) Calcium Level 10.3 mg/dl (8.5-10.1) Medications Administered Medications (Trade) Dose Ordered Sig/Carson Route Start Time Stop Time Status Last Admin Dose Admin Sodium Chloride 1,000 ml @ 999 mls/hr Q1H1M STAT IV 08/26/17 11:53 08/26/17 12:53 DC 08/26/17 12:15 999 MLS/HR Meclizine HCl (Antivert Tab) 25 mg NOW STAT PO 08/26/17 11:53 08/26/17 11:54 DC 08/26/17 12:15 25 MG ED Course The patient was evaluated. The patient already had an IV in place. CBC and differential and renal profile was ordered. The patient was given 1 L normal saline wide open. The patient was given Antivert 25 mg p.o. labs are reviewed. The patient's white count was elevated but this is most likely due to the patient's vomiting. The patient was reevaluated and was still dizzy. I then reevaluated him again and he was feeling better. Sharmaine maneuver was performed and afterwards the patient denied any dizziness. He stated he just felt a little lightheaded. He denied any nausea. The patient was discharged home in stable condition with his driving. Medical Decision Differential diagnosis include benign positional vertigo, acute labyrinthitis, cardiac arrhythmia [place] Drug Monitoring Program Search Results: patient reviewed within database Medication Reconcilliation Current Medication List: was personally reviewed by me Blood Pressure Screening Patient's blood pressure: Elevated blood pressure Blood pressure disposition: Elevated BP felt to be situational Impression Primary Impression: Vertigo Departure Information Dispostion Home / Self-Care Condition GOOD Referrals Anjelica Foss M.D. (PCP) Forms HOME CARE DOCUMENTATION FORM, IMPORTANT VISIT INFORMATION Patient Instructions ED BPV Vertigo, [facility] Additional Instructions Do not moving her head quickly. Sit upright for several hours before you lie down. When you lie down lie down slowly. If you need to you may take additional meclizine this evening. If symptoms persist or worsen, follow-up with your family doctor or return to ER.
[2017-08-26 14:31] VITALS: BP 178/109
== END 2017-08-26 14:31 | disposition home or self-care (01) ==
LOC: C.EDC 11:39 → EDBD 11:39 → C.EDC 14:31
DX: R42 Dizziness and giddiness (principal); F41.9 Anxiety disorder, unspecified; E11.9 Type 2 diabetes mellitus without complications; I10 Essential (primary) hypertension; G47.33 Obstructive sleep apnea (adult) (pediatric); Z83.3 Family history of diabetes mellitus; Z82.49 Family history of ischemic heart disease and other diseases of the circulatory system; Z79.82 Long term (current) use of aspirin; Z79.899 Other long term (current) drug therapy

== ENCOUNTER 2017-09-04 11:50 | Observation (INO) | payer BC ==
[2017-09-04] VITALS (8 sets, daily range): BP systolic 120–181; BP diastolic 79–98; PULSE 81–129; TEMP 36.5–37; O2SAT 92–98; Ht 190.5 cm; Wt 122.8 kg
[~2017-09-04] VITALS: Ht 190.5 cm; Wt 122.8 kg
[~2017-09-04 11:50] MED LIST changes: +ASPI81TA28 PO; +ATOR-22 PO; -MCRK20 PO
--- NOTE | 2017-09-04 12:18 | EMERGENCY ROOM VISIT NOTE ---
History Report prepared by Harinder: Frank Brandon Under the Supervision of: Dr. Joni Marcial M.D. First contact with patient: 12:08 Chief Complaint: HYPERTENSION Stated Complaint: HIGH BLOOD PRESSURE History of Present Illness The patient is a 41 year old male with a history of hypertension who presents to the Emergency Room with complaints of persistent hypertension this morning. He states that he had a Cortisone injection this morning, and before the injection, his blood pressure was noted to be 190/112. The patient then had the injection, and at work afterward he noted that his blood pressure was 211/120s. He adds that ever since he woke up this morning, he has had some persistent tightness in his chest as if he were having a panic attack, which he has a history of. The patient notes that he was not feeling anxious about having the Cortisone injection. He says that he takes Benicar for his hypertension, and his blood pressure had been fine for a while until this morning. The patient notes that he has eaten salted cashews over the past few days. The patient says that over the past year, he has not been exercising as much, and has gained about 20 pounds. His last Benicar was this morning. Source of History: patient Onset: This morning Position: other (global) Symptom Intensity: 211/120s Quality: other (hypertension) Timing: other (persistent) Associated Symptoms: + chest pain (tightness) Note: No other associated symptoms noted. Review of Systems See HPI for pertinent positives & negatives. A total of 10 systems reviewed and were otherwise negative. Past Medical & Surgical Medical Problems: (1) Anxiety (2) Bacteremia (3) DM type 2 (diabetes mellitus, type 2) (4) HTN (hypertension) (5) Hypertensive urgency (6) CLARKE on CPAP Surgical Problems: (1) H/O sinus surgery (2) History of parathyroid surgery Family History Diabetes mellitus GRANDFATHER GRANDMOTHER FH: CAD (coronary artery disease) FATHER GRANDFATHER Social History Smoking Status: Never Smoker Alcohol Use: occasionally Drug Use: none Marital Status: Housing Status: lives with family Occupation Status: employed Current/Historical Medications Scheduled Aspirin (Aspirin Ec), 81 MG PO DAILY Atorvastatin (Lipitor), 20 MG PO QPM Hydrochlorothiazide (Hctz), 25 MG PO DAILY Metformin Hcl Er (Glucophage Er), 500 MG PO DAILY Multivitamin (Multivitamin), 1 TAB PO DAILY Naproxen (Naproxen), 500 MG PO BID Olmesartan Medoxomil (Benicar), 20 MG PO DAILY Scheduled PRN Meclizine Hcl (Meclizine Hcl), 25 MG PO TID PRN for Dizziness or Vertigo Allergies Coded Allergies: No Known Allergies (Unverified , 09/04/17) Physical Exam Vital Signs Date Time Temp Pulse Resp B/P (MAP) Pulse Ox O2 Delivery O2 Flow Rate FiO2 09/04/17 14:48 115 20 173/129 98 Room Air 09/04/17 14:31 117 18 227/115 98 Room Air 09/04/17 13:51 210/133 09/04/17 13:51 196/135 09/04/17 13:40 116 18 211/129 97 Room Air 09/04/17 12:39 98 Room Air 09/04/17 12:38 112 18 182/127 98 Room Air 09/04/17 12:16 115 09/04/17 11:59 37.1 118 18 204/111 98 Room Air Physical Exam GENERAL: Awake, alert, well-appearing, in no acute distress HENT: Normocephalic, atraumatic. Oropharynx unremarkable. EYES: Normal conjunctiva. Sclera non-icteric. NECK: Supple. No nuchal rigidity. FROM. No JVD. RESPIRATORY: Clear to auscultation. CARDIAC: Regular rate, normal rhythm. Extremities warm and well perfused. Pulses equal. ABDOMEN: Soft, non-distended. No tenderness to palpation. No rebound or guarding. No masses. RECTAL: Deferred. MUSCULOSKELETAL: Chest examination reveals no tenderness. The back is symmetrical on inspection without obvious abnormality. There is no CVA tenderness to palpation. No joint edema. LOWER EXTREMITIES: Calves are equal size bilaterally and non-tender. No edema. No discoloration. NEURO: Normal sensorium. No sensory or motor deficits noted. SKIN: No rash or jaundice noted. Medical Decision & Procedures ER Provider Diagnostic Interpretation: X-ray results as stated below per interpretation by me and the radiologist: CHEST ONE VIEW PORTABLE CLINICAL HISTORY: severe hypertension dyspnea COMPARISON STUDY: 03/20/2017 FINDINGS: The bones soft tissues and hemidiaphragms are normal. The cardiomediastinal silhouette is normal. The lungs are clear. The pulmonary vasculature is normal. IMPRESSION: Negative chest. The above report was generated using voice recognition software. It may contain grammatical, syntax or spelling errors. Electronically signed by: Francisco Javier Franklin M.D. 09/04/2017 1:00 PM Dictated Date/Time: 09/04/2017 12:58 PM Laboratory Results 09/04/17 12:20 Red Blood Count 5.45, Mean Corpuscular Volume 81.7, Mean Corpuscular Hemoglobin 29.9, Mean Corpuscular Hemoglobin Concent 36.6, Mean Platelet Volume 9.3, Neutrophils (%) (Auto) 84.7, Lymphocytes (%) (Auto) 12.6, Monocytes (%) (Auto) 1.9, Eosinophils (%) (Auto) 0.2, Basophils (%) (Auto) 0.2, Neutrophils # (Auto) 9.58, Lymphocytes # (Auto) 1.42, Monocytes # (Auto) 0.21, Eosinophils # (Auto) 0.02, Basophils # (Auto) 0.02 Test 09/04/17 12:20 09/04/17 13:02 White Blood Count 11.30 K/uL (4.8-10.8) Red Blood Count 5.45 M/uL (4.7-6.1) Hemoglobin 16.3 g/dL (14.0-18.0) Hematocrit 44.5 % (42-52) Mean Corpuscular Volume 81.7 fL (80-100) Mean Corpuscular Hemoglobin 29.9 pg (25-34) Mean Corpuscular Hemoglobin Concent 36.6 g/dl (32-36) Platelet Count 207 K/uL (130-400) Mean Platelet Volume 9.3 fL (7.4-10.4) Neutrophils (%) (Auto) 84.7 % Lymphocytes (%) (Auto) 12.6 % Monocytes (%) (Auto) 1.9 % Eosinophils (%) (Auto) 0.2 % Basophils (%) (Auto) 0.2 % Neutrophils # (Auto) 9.58 K/uL (1.4-6.5) Lymphocytes # (Auto) 1.42 K/uL (1.2-3.4) Monocytes # (Auto) 0.21 K/uL (0.11-0.59) Eosinophils # (Auto) 0.02 K/uL (0-0.5) Basophils # (Auto) 0.02 K/uL (0-0.2) RDW Standard Deviation 38.6 fL (36.4-46.3) RDW Coefficient of Variation 12.9 % (11.5-14.5) Immature Granulocyte % (Auto) 0.4 % Immature Granulocyte # (Auto) 0.05 K/uL (0.00-0.02) Prothrombin Time 10.0 SECONDS (9.0-12.0) Prothromb Time International Ratio 1.0 (0.9-1.1) Activated Partial Thromboplast Time 23.4 SECONDS (21.0-31.0) Partial Thromboplastin Ratio 0.9 Estimated Average Glucose 134 mg/dl Hemoglobin A1c 6.3 % (4.5-5.6) Total Bilirubin 1.8 mg/dl (0.2-1) Direct Bilirubin 0.3 mg/dl (0-0.2) Aspartate Amino Transf (AST/SGOT) 33 U/L (15-37) Alanine Aminotransferase (ALT/SGPT) 78 U/L (12-78) Alkaline Phosphatase 98 U/L (45-117) Total Creatine Kinase 123 U/L (39-308) Creatine Kinase MB 1.1 ng/ml (0.5-3.6) Creatine Kinase MB Ratio 0.9 (0-3.0) Total Protein 8.9 gm/dl (6.4-8.2) Albumin 4.9 gm/dl (3.4-5.0) Lipase 160 U/L (73-393) Thyroid Stimulating Hormone (TSH) 1.010 uIu/ml (0.300-4.500) Ionized Calcium 1.27 mmol/l (1.12-1.32) Labs reviewed by ED physician. Medications Administered Medications (Trade) Dose Ordered Sig/Carson Route Start Time Stop Time Status Last Admin Dose Admin Sodium Chloride 1,000 ml @ 999 mls/hr Q1H1M STAT IV 09/04/17 12:21 09/04/17 13:21 DC 09/04/17 12:37 999 MLS/HR Hydrochlorothiazide (Hydrochlorothiazide Tab) 50 mg STK-MED ONCE .ROUTE 09/04/17 12:33 09/04/17 12:34 DC 3/8/18 12:37 50 MG Lorazepam (Ativan Inj) 1 mg NOW STAT IV 09/04/17 13:53 09/04/17 13:54 DC 09/04/17 13:58 1 MG Nitroglycerin (Nitroglycerin 2% Oint) 1 inch NOW STAT EXT 09/04/17 14:37 09/04/17 14:38 DC 09/04/17 14:48 1 INCH ECG Per My Interpretation Indication: other (hypertension) Rate (beats per minute): 117 Rhythm: sinus tachycardia Findings: other (incomplete RBBB, no ST elevation or depression, rightward axis ) ED Course 1212: Past medical records reviewed. The patient was evaluated in room C2B. A complete history and physical examination was performed. 1221: NSS 1000 ml @ 999 mls/hr IV. 1223: Hydrochlorothiazide Tab 50 mg PO. 1533: Upon reexamination the patient is resting comfortably. I discussed results and treatment plan with the patient. He verbalizes agreement and understanding. The patient is ready for discharge. Medical Decision Differential diagnosis: Etiologies such as benign hypertension, hypertensive emergency, cardiovascular pathology, pheochromocytoma, electrolyte abnormality, renal disease, endorgan damage, as well as others were entertained. This is a 41-year-old male who presents the emergency department complaining of chest pain as well as hypertension. The patient reports that he put on some weight over the past year. He also received a steroid shot today where it was noted his blood pressure was elevated. I noted to the patient that his sugar was elevated he believes that this is due to the steroid shot. I attempted to bring the patient's blood pressure down on putting him on his old blood pressure med indication which was hydrochlorothiazide he was observed for sometime in the emergency department however the patient was uncomfortable with how high his blood pressure continue to be despite my reassurance. He was then given Ativan for his anxiety however his pressure continued to remain elevated. He was then given Nitropaste which resulted in his blood pressure coming down. This also resolved and cessation of his chest pain. For this reason I did discuss the case with the hospitalist who agreed to admit the patient. Patient was in agreement with the treatment plan. Medication Reconcilliation Current Medication List: was personally reviewed by me Blood Pressure Screening Patient's blood pressure: Elevated blood pressure Blood pressure disposition: Referred to PCP Impression Primary Impression: HTN (hypertension) Scribe Attestation The scribe's documentation has been prepared under my direction and personally reviewed by me in its entirety. I confirm that the note above accurately reflects all work, treatment, procedures, and medical decision making performed by me. Departure Information Dispostion Home / Self-Care Prescriptions Hydrochlorothiazide (HCTZ) 25 Mg Tab 25 MG PO DAILY for 30 Days, #30 TAB Prov: Joni Marcial MD 09/04/17 Referrals Anjelica Foss M.D. (PCP) Forms HOME CARE DOCUMENTATION FORM, IMPORTANT VISIT INFORMATION, WORK / SCHOOL INSTRUCTIONS Patient Instructions ED Hypertension Conf Out Of Control, Hypertension Control, Hypertension Dc, My [facility] Additional Instructions You were found to have an elevated blood pressure today (>120 sytolic or >90 diastolic). Per medicare guidelines, you need to follow up with this blood pressure screening with your Primary Care Physician (PCP). For a new PCP call [phone]. You have been examined and treated today on an emergency basis only. This is not a substitute for, or an effort to provide, complete comprehensive medical care. It is impossible to recognize and treat all injuries or illnesses in a single emergency department visit. It is therefore important that you follow up closely with Dr Foss. Call as soon as possible for an appointment. Thank you for your time and consideration. I look forward to speaking with you again soon. Please don't hesitate to call us if you have any questions. Problem Qualifiers Primary Impression: HTN (hypertension) Hypertension type: unspecified Qualified Codes: I10 - Essential (primary) hypertension
[2017-09-04] MEDS ORDERED: SODIUM CHLORIDE 0.9% 1000ML 1,000 ML IV STA (12:21)
[2017-09-04] MEDS ORDERED: HYDROCHLOROTHIAZIDE 50 MG TAB PO STA (12:23)
[2017-09-04 12:32] LABS: BASO % 0.2 %; BASO ABS # 0.02 K/uL (0-0.2); EOS % 0.2 %; EOS ABS # 0.02 K/uL (0-0.5); HEMATOCRIT 44.5 % (42-52); HEMOGLOBIN 16.3 g/dL (14.0-18.0); IG# 0.05 K/uL (0.00-0.02); LYMPH % 12.6 %; LYMPH ABS # 1.42 K/uL (1.2-3.4); MEAN CELL VOLUME 81.7 fL (80-100); MEAN CORPUSCULAR HEMOGLOBIN 29.9 pg (25-34); MEAN CORPUSCULAR HGB CONC 36.6 g/dl (32-36); MEAN PLATELET VOLUME 9.3 fL (7.4-10.4); MONO % 1.9 %; MONO ABS # 0.21 K/uL (0.11-0.59); NEUT % 84.7 %; NEUT ABS # 9.58 K/uL (1.4-6.5); PLATELET COUNT 207 K/uL (130-400); RED CELL DISTRIBUTION WIDTH CV 12.9 % (11.5-14.5); RED CELL DISTRIBUTION WIDTH SD 38.6 fL (36.4-46.3)
[2017-09-04] MEDS ORDERED: HYDROCHLOROTHIAZIDE 25 MG TAB ONE (12:33)
[2017-09-04 12:44] LABS: PTT PATIENT 23.4 SECONDS (21.0-31.0)
[2017-09-04 12:55] LABS: ALBUMIN 4.9 gm/dl (3.4-5.0); ALT/SGPT 78 U/L (12-78); AST/SGOT 33 U/L (15-37); BLOOD UREA NITROGEN 12 mg/dl (7-18); CALCIUM 10.5 mg/dl (8.5-10.1); CARBON DIOXIDE 26 mmol/L (21-32); CREATININE 1.05 mg/dl (0.60-1.40); GLUCOSE 192 mg/dl (70-99); LIPASE 160 U/L (73-393); POTASSIUM 3.9 mmol/L (3.5-5.1); SODIUM 134 mmol/L (136-145)
[2017-09-04] MEDS ORDERED: MECL1TAB42 PO (12:59)
[2017-09-04] MEDS ORDERED: NAPR500T3 PO (13:00)
--- NOTE | 2017-09-04 13:02 | DIAGNOSTIC IMAGING REPORT ---
CHEST ONE VIEW PORTABLE CLINICAL HISTORY: severe hypertension dyspnea COMPARISON STUDY: 03/20/2017 FINDINGS: The bones soft tissues and hemidiaphragms are normal. The cardiomediastinal silhouette is normal. The lungs are clear. The pulmonary vasculature is normal. IMPRESSION: Negative chest. The above report was generated using voice recognition software. It may contain grammatical, syntax or spelling errors. Electronically signed by: Francisco Javier Franklin M.D. 09/04/2017 1:00 PM Dictated Date/Time: 09/04/2017 12:58 PM
[2017-09-04 13:09] LABS: ALKALINE PHOSPHATASE 98 U/L (45-117); CKMB 1.1 ng/ml (0.5-3.6); TOTAL PROTEIN 8.9 gm/dl (6.4-8.2)
[2017-09-04] MEDS ORDERED: HYDR25TA4 PO (13:23)
[2017-09-04] MEDS ORDERED: LORAZEPAM 2 MG/ML 1 ML VIAL IV STA (13:53)
[2017-09-04 14:29] LABS: HEMOGLOBIN A1C 6.3 % (4.5-5.6)
[2017-09-04] MEDS ORDERED: NITROGLYCERIN 2% OINTMENT 30GM TUBE EXT STA (14:37)
[2017-09-04] MEDS ORDERED: ONDANSETRON INJ 2 MG/ML 2 ML VIAL IV PRN (16:15)
[2017-09-04] MEDS ORDERED: IV FLUIDS COMPLETED PRN (16:30)
--- NOTE | 2017-09-04 16:49 | History and Physical ---
History & Physical Date & Time of Service: Sep 04, 2017 at 16:12 Chief Complaint: High Blood Pressure Associated with some chest discomfort. Primary Care Physician: Anjelica Foss M.D. History of Present Illness Source: patient He is 41-year-old white male with significant past medical history of familier Hyperparathyroidism, type 2 diabetes, hypertension and hyperlipidemia and apparently has been complaining of neck pain with associated numbness involving the right upper extremity for a while. He underwent cervical cortisone injection by his pain therapist this morning. Before the procedure he was noted to have high blood pressure of 190 and above systolic. On improvement of his blood pressure he received the cortisone shot in his neck. He went home and found his blood pressure to be very high of systolic more than 200 and diastolic more than 120 and at the same time he felt some chest discomfort but no other associated symptoms. From that point he came to the emergency room for further evaluation of his condition. In the ER he received Nitropaste, a small dose of Ativan IV, and hydrochlorothiazide 50 mg orally with that blood pressure was not controlled and he was advised for admission. Past Medical/Surgical History Past medical history significant for. Familial hyperparathyroidism Hypertension Hyperlipidemia Tension headache CLARKE 1 CPAP. Family History Diabetes mellitus GRANDFATHER GRANDMOTHER FH: CAD (coronary artery disease) FATHER GRANDFATHER Social History Smoking Status: Never Smoker Smokeless Tobacco Use: No Alcohol Use: occasionally Drug Use: none Marital Status: Housing status: lives with family Occupational Status: employed Immunizations History of Influenza Vaccine: Unknown History of Tetanus Vaccine?: Yes History of Pneumococcal: No Other Immunizations: Pertussis Allergies Coded Allergies: No Known Allergies (Unverified , 09/04/17) Home Medications Scheduled Aspirin (Aspirin Ec), 81 MG PO DAILY Atorvastatin (Lipitor), 20 MG PO QPM Hydrochlorothiazide (Hctz), 25 MG PO DAILY Metformin Hcl Er (Glucophage Er), 500 MG PO DAILY Multivitamin (Multivitamin), 1 TAB PO DAILY Naproxen (Naproxen), 500 MG PO BID Olmesartan Medoxomil (Benicar), 20 MG PO DAILY Scheduled PRN Meclizine Hcl (Meclizine Hcl), 25 MG PO TID PRN for Dizziness or Vertigo Review of Systems Cardiovascular: + chest pain (minimal discomfort) Physical Exam Vital Signs Date Time Temp Pulse Resp B/P (MAP) Pulse Ox O2 Delivery O2 Flow Rate FiO2 09/04/17 14:48 115 20 173/129 98 Room Air 09/04/17 14:31 117 18 227/115 98 Room Air 09/04/17 13:51 210/133 09/04/17 13:51 196/135 09/04/17 13:40 116 18 211/129 97 Room Air 09/04/17 12:39 98 Room Air 09/04/17 12:38 112 18 182/127 98 Room Air 09/04/17 12:16 115 09/04/17 11:59 37.1 118 18 204/111 98 Room Air General Appearance: no apparent distress Head: normocephalic Eyes: normal inspection ENT: normal ENT inspection Neck: supple Respiratory/Chest: chest non-tender, lungs clear, normal breath sounds Cardiovascular: regular rate, rhythm Abdomen/GI: normal bowel sounds, non tender, soft, no organomegaly Back: normal inspection Extremities/Musculoskelatal: normal inspection, no calf tenderness Neurologic/Psych: hunting guide II-XII nml as tested, no motor/sensory deficits Skin: normal color Lymphatic: no adenopathy Diagnostics Laboratory Results Results Past 24 Hours Test 09/04/17 12:20 09/04/17 13:02 Range/Units White Blood Count 11.30 4.8-10.8 K/uL Red Blood Count 5.45 4.7-6.1 M/uL Hemoglobin 16.3 14.0-18.0 g/dL Hematocrit 44.5 42-52 % Mean Corpuscular Volume 81.7 80-100 fL Mean Corpuscular Hemoglobin 29.9 25-34 pg Mean Corpuscular Hemoglobin Concent 36.6 32-36 g/dl Platelet Count 207 130-400 K/uL Mean Platelet Volume 9.3 7.4-10.4 fL Neutrophils (%) (Auto) 84.7 % Lymphocytes (%) (Auto) 12.6 % Monocytes (%) (Auto) 1.9 % Eosinophils (%) (Auto) 0.2 % Basophils (%) (Auto) 0.2 % Neutrophils # (Auto) 9.58 1.4-6.5 K/uL Lymphocytes # (Auto) 1.42 1.2-3.4 K/uL Monocytes # (Auto) 0.21 0.11-0.59 K/uL Eosinophils # (Auto) 0.02 0-0.5 K/uL Basophils # (Auto) 0.02 0-0.2 K/uL RDW Standard Deviation 38.6 36.4-46.3 fL RDW Coefficient of Variation 12.9 11.5-14.5 % Immature Granulocyte % (Auto) 0.4 % Immature Granulocyte # (Auto) 0.05 0.00-0.02 K/uL Prothrombin Time 10.0 9.0-12.0 SECONDS Prothromb Time International Ratio 1.0 0.9-1.1 Activated Partial Thromboplast Time 23.4 21.0-31.0 SECONDS Partial Thromboplastin Ratio 0.9 Sodium Level 134 136-145 mmol/L Potassium Level 3.9 3.5-5.1 mmol/L Chloride Level 101 98-107 mmol/L Carbon Dioxide Level 26 21-32 mmol/L Anion Gap 7.0 3-11 mmol/L Blood Urea Nitrogen 12 7-18 mg/dl Creatinine 1.05 0.60-1.40 mg/dl Est Creatinine Clear Calc Drug Dose 132.0 ml/min Estimated GFR () 102.4 Estimated GFR (Non- 88.4 BUN/Creatinine Ratio 11.2 10-20 Random Glucose 192 70-99 mg/dl Estimated Average Glucose 134 mg/dl Hemoglobin A1c 6.3 4.5-5.6 % Calcium Level 10.5 8.5-10.1 mg/dl Total Bilirubin 1.8 0.2-1 mg/dl Direct Bilirubin 0.3 0-0.2 mg/dl Aspartate Amino Transf (AST/SGOT) 33 15-37 U/L Alanine Aminotransferase (ALT/SGPT) 78 12-78 U/L Alkaline Phosphatase 98 45-117 U/L Total Creatine Kinase 123 39-308 U/L Creatine Kinase MB 1.1 0.5-3.6 ng/ml Creatine Kinase MB Ratio 0.9 0-3.0 Troponin I < 0.015 0-0.045 ng/ml Total Protein 8.9 6.4-8.2 gm/dl Albumin 4.9 3.4-5.0 gm/dl Lipase 160 73-393 U/L Thyroid Stimulating Hormone (TSH) 1.010 0.300-4.500 uIu/ml Ionized Calcium 1.27 1.12-1.32 mmol/l CXR normal other (Partial RBBB) Impression Assessment and Plan Hypertensive urgency. He was started with them hydrochlorothiazide 25 mg daily was given a dose of Benicar and also Nitropaste in the emergency room We will increase his Benicar to 40 mg daily and continue his hydrochlorothiazide We will monitor his blood pressure while in the hospital. Chest discomfort Doubt any ACS. He will be admitted to telemetry unit. Will get serial cardiac enzymes. Get an echocardiogram. Hyperlipidemia Continue with his statin. We will check his fasting lipid profile in the morning. Type 2 diabetes We will hold his metformin while in the hospital. Check blood sugar before meals at bedtime and cover with sliding scale insulin. We will check hemoglobin A1c in the hospital. Familial hyperparathyroidism His calcium seems to be stable. Advised plenty of water orally. CLARKE ON CPAP Continue with CPAP while in the hospital. DVT prophylaxis With Lovenox. CODE STATUS Full resuscitation Advanced Directives Existing Advance Directive: No Existing Living Will: No Existing Power of Aboriginal Liaison Officer: No Existing Health Care Proxy: No Resuscitation Status Full VTE Prophylaxis Will order VTE Prophylaxis: Yes
[2017-09-04] MEDS ORDERED: ENOXAPARIN 40 MG/0.4 ML SYR SC SCH (17:00)
[2017-09-04] MEDS ORDERED: GLUCOSE 10 TABS/TUBE PO PRN (17:00)
[2017-09-04] MEDS ORDERED: GLUCAGON FOR INJ 1 MG VIAL SQ PRN (17:00)
[2017-09-04] MEDS ORDERED: DEXTROSE 50% 50 ML SYR IV PRN (17:00)
[2017-09-04] MEDS ORDERED: GLUCOSE 40% GEL 15 GM TUBE PO PRN (17:00)
[2017-09-04] MEDS ORDERED: OLMESARTAN MEDOXOMIL 20 MG TAB PO ONE (17:00)
[2017-09-04] MEDS: ACETAMINOPHEN 500 MG TAB PO PRN (17:41)
[2017-09-04] MEDS: INSULIN ASPART 100 UNITS/ML 3 ML PEN SC SCH ×2 (17:53→21:06)
[2017-09-04] MEDS ORDERED: NAPROXEN 250 MG TAB PO STA (20:26)
[2017-09-04] MEDS ORDERED: HydrALAZINE HCL 20 MG/ML VIAL IV. PRN (20:30)
[2017-09-04] MEDS ORDERED: ATORVASTATIN 20 MG TAB PO SCH (21:00)
[2017-09-05] VITALS (7 sets, daily range): BP systolic 138–197; BP diastolic 88–117; PULSE 86–125; TEMP 36.5–36.9; O2SAT 95–97
[2017-09-05] MEDS: ACETAMINOPHEN 500 MG TAB PO PRN (04:07)
[2017-09-05 04:31] LABS: BLOOD UREA NITROGEN 16 mg/dl (7-18); CALCIUM 10.2 mg/dl (8.5-10.1); CARBON DIOXIDE 25 mmol/L (21-32); CREATININE 0.98 mg/dl (0.60-1.40); GLUCOSE 166 mg/dl (70-99); POTASSIUM 3.9 mmol/L (3.5-5.1); SODIUM 133 mmol/L (136-145)
[2017-09-05 04:36] LABS: CHOLESTEROL 168 mg/dl (0-200); LDL CHOLESTEROL CALCULATED 93 mg/dl
[2017-09-05] MEDS ORDERED: NAPROXEN 250 MG TAB PO ONE (06:45)
[2017-09-05] MEDS: INSULIN ASPART 100 UNITS/ML 3 ML PEN SC SCH ×2 (07:49→11:51)
[2017-09-05] MEDS ORDERED: MULTIVITAMIN TAB PO SCH (09:00)
[2017-09-05] MEDS ORDERED: HYDROCHLOROTHIAZIDE 25 MG TAB PO SCH (09:00)
[2017-09-05] MEDS ORDERED: OLMESARTAN MEDOXOMIL 40 MG TAB PO SCH (09:00)
[2017-09-05] MEDS ORDERED: ASPIRIN 81 MG ECTAB PO SCH (09:00)
[2017-09-05] MEDS ORDERED: LORAZEPAM 1 MG TAB PO STA (13:08)
--- NOTE | 2017-09-05 14:36 | Progress Note ---
Internal Med Progress Note Date of Service: Sep 05, 2017. Provider Documentation: SUBJECTIVE: The patient was seen and examined Anxious this AM with increased in BP No symptoms reported except Headache OBJECTIVE: Vital Signs-as noted below Exam: General-No distress at rest Eyes-normnal ENT-normal Neck-supple Lungs-Clear to auscultate bilaterally Heart-Regular,no murmur Abdomen-Benign,no masses,bowel sound present Extremities-No edema Neuro-AAOx3 Lab data as noted below. ASSESSMENT & PLAN: Hypertensive urgency. He was started with them hydrochlorothiazide 25 mg daily was given a dose of Benicar and also Nitropaste in the emergency room We will increase his Benicar to 40 mg daily and continue his hydrochlorothiazide We will monitor his blood pressure while in the hospital. BP remained on higher side but no urgency Chest discomfort Doubt any ACS. He will be admitted to telemetry unit. Will get serial cardiac enzymes. Get an echocardiogram-cancelled as this was done in Feb 2017 No ACS and no more chest discomfort Hyperlipidemia Continue with his statin. We will check his fasting lipid profile in the morning. Type 2 diabetes We will hold his metformin while in the hospital. Check blood sugar before meals at bedtime and cover with sliding scale insulin. We will check hemoglobin A1c in the hospital.-6.3 Familial hyperparathyroidism His calcium seems to be stable. Advised plenty of water orally. Calcium-10.2 CLARKE ON CPAP Continue with CPAP while in the hospital. DVT prophylaxis With Lovenox. CODE STATUS Full resuscitation Discharge today Vital Signs: Date Time Temp Pulse Resp B/P (MAP) Pulse Ox O2 Delivery O2 Flow Rate FiO2 09/05/17 12:59 125 138/93 (108) 09/05/17 12:00 Room Air 09/05/17 11:32 187/113 (137) 09/05/17 11:06 36.8 125 18 197/92 (127) 97 195/104 (134) 09/05/17 09:15 111 182/106 (131) 108 173/117 (135) 09/05/17 08:00 Room Air 09/05/17 07:02 36.9 110 20 170/98 (122) 97 09/05/17 04:00 CPAP 09/05/17 03:35 36.5 86 20 139/88 (105) 95 Room Air 09/05/17 00:00 CPAP 09/04/17 23:40 36.5 103 19 120/79 (93) 92 CPAP 09/04/17 22:20 81 96 21 09/04/17 21:23 95 Room Air 09/04/17 21:22 95 Room Air 09/04/17 20:53 105 164/98 (120) 09/04/17 19:29 37.0 129 20 181/79 (113) 95 09/04/17 17:20 37.0 104 16 151/93 (112) 95 Room Air 09/04/17 17:20 98 Room Air 09/04/17 17:20 95 Room Air 09/04/17 17:11 37.0 104 16 151/93 Room Air 09/04/17 16:27 123 18 153/96 98 Room Air 09/04/17 16:13 127 18 205/108 98 Room Air 09/04/17 14:48 115 20 173/129 98 Room Air Lab Results: Results Past 24 Hours Test 09/04/17 16:59 09/04/17 18:05 09/04/17 20:40 09/04/17 21:55 Range/Units Bedside Glucose 180 169 70-99 mg/dl Urine Color YELLOW Urine Appearance CLEAR CLEAR Urine pH 7.0 4.5-7.5 Urine Specific Rhine 1.017 1.000-1.030 Urine Protein NEG NEG Urine Glucose (UA) NEG NEG Urine Ketones NEG NEG Urine Occult Blood NEG NEG Urine Nitrite NEG NEG Urine Bilirubin NEG NEG Urine Urobilinogen NEG NEG Urine Leukocyte Esterase NEG NEG Troponin I < 0.015 0-0.045 ng/ml Test 09/05/17 03:52 09/05/17 06:40 09/05/17 09:54 09/05/17 11:26 Range/Units Sodium Level 133 136-145 mmol/L Potassium Level 3.9 3.5-5.1 mmol/L Chloride Level 101 98-107 mmol/L Carbon Dioxide Level 25 21-32 mmol/L Anion Gap 7.0 3-11 mmol/L Blood Urea Nitrogen 16 7-18 mg/dl Creatinine 0.98 0.60-1.40 mg/dl Est Creatinine Clear Calc Drug Dose 141.5 ml/min Estimated GFR () 111.3 Estimated GFR (Non- 96.1 BUN/Creatinine Ratio 16.2 10-20 Random Glucose 166 70-99 mg/dl Calcium Level 10.2 8.5-10.1 mg/dl Magnesium Level 2.1 1.8-2.4 mg/dl Troponin I < 0.015 < 0.015 0-0.045 ng/ml Triglycerides Level 144 0-150 mg/dl Cholesterol Level 168 0-200 mg/dl HDL Cholesterol 46 mg/dl LDL Cholesterol, Calculated 93 mg/dl VLDL Cholesterol, Calculated 29 mg/dl Cholesterol/HDL Ratio 3.7 Bedside Glucose 155 179 70-99 mg/dl
[2017-09-05] MEDS ORDERED: BNC/40 PO (14:49)
--- NOTE | 2017-09-05 14:52 | Discharge Instructions ---
Discharge Instructions Date of Service Sep 05, 2017. Admission Reason for Admission: Hypertensive Urgency Discharge Discharge Diagnosis / Problem: Hypertensive Urgency Discharge Goals Goal(s): Prevent Disease Progression Activity Recommendations Activity Limitations: resume your previous activity Dr Carmen Foss on 09/10/17 at 9:45 AM . Current Hospital Diet Patient's current hospital diet: Regular Diet, Diabetes Type 2 Diet Discharge Diet Recommended Diet: Diabetes Type 2 Diet Pending Studies Studies pending at discharge: no Laboratory Results Hemoglobin A1c Test 09/04/17 12:20 Range/Units Estimated Average Glucose 134 mg/dl Hemoglobin A1c 6.3 H 4.5-5.6 % Lipid Panel Test 09/05/17 03:52 Range/Units Triglycerides Level 144 0-150 mg/dl Cholesterol Level 168 0-200 mg/dl HDL Cholesterol 46 mg/dl Cholesterol/HDL Ratio 3.7 LDL Cholesterol, Calculated 93 mg/dl Medical Emergencies . Who to Call and When: Medical Emergencies: If at any time you feel your situation is an emergency, please call 911 immediately. . Non-Emergent Contact Non-Emergency issues call your: Primary Care Provider . Past History Medical & Surgical History: (1) Hypertensive urgency (2) Anxiety (3) DM type 2 (diabetes mellitus, type 2) (4) HTN (hypertension) (5) CLARKE on CPAP (6) Bacteremia (7) H/O sinus surgery (8) History of parathyroid surgery . "Provider Documentation" section prepared by Nirmal Washburn. .
[2017-09-05] MEDS ORDERED: BNC40 PO (15:08)
[2017-09-05] MEDS ORDERED: HYDR25TA5 PO ×2 (15:15)
--- NOTE | 2017-09-06 07:53 | Discharge Summary ---
Discharge Summary Date of Service Sep 06, 2017. Discharge Summary Admission Date: Sep 04, 2017 at 16:07 Discharge Date: Sep 05, 2017 Discharge Disposition: Home Principal Diagnosis: Hypertensive Urgency Secondary Diagnoses/Problems: Please see H&P and Hospital progress note Medication Reconciliation New Medications: Hydrochlorothiazide (Hydrochlorothiazide) 25 Mg Tab 25 MG PO DAILY for 30 Days, #30 TAB Olmesartan Medoxomil (Benicar) 40 Mg Tab 40 MG PO DAILY for 30 Days, #30 TAB Continued Medications: Aspirin (Aspirin Ec) 81 Mg Tab 81 MG PO DAILY Atorvastatin (Lipitor) 20 Mg Tab 20 MG PO QPM, TAB Meclizine Hcl (Meclizine Hcl) 25 Mg Tab 25 MG PO TID PRN for Dizziness or Vertigo, TAB Metformin Hcl Er (Glucophage Er) 500 Mg Tab 500 MG PO DAILY for 90 Days, #90 TAB 3 Refills Multivitamin (Multivitamin) Tab 1 TAB PO DAILY, TAB Naproxen (Naproxen) 500 Mg Tab 500 MG PO BID, TAB Admission Information HPI (per Admitting provider): He is 41-year-old white male with significant past medical history of familier Hyperparathyroidism, type 2 diabetes, hypertension and hyperlipidemia and apparently has been complaining of neck pain with associated numbness involving the right upper extremity for a while. He underwent cervical cortisone injection by his pain therapist this morning. Before the procedure he was noted to have high blood pressure of 190 and above systolic. On improvement of his blood pressure he received the cortisone shot in his neck. He went home and found his blood pressure to be very high of systolic more than 200 and diastolic more than 120 and at the same time he felt some chest discomfort but no other associated symptoms. From that point he came to the emergency room for further evaluation of his condition. In the ER he received Nitropaste, a small dose of Ativan IV, and hydrochlorothiazide 50 mg orally with that blood pressure was not controlled and he was advised for admission. Past Medical/Surgical History Past medical history significant for. Familial hyperparathyroidism Hypertension Hyperlipidemia Tension headache CLARKE 1 CPAP. Family History Diabetes mellitus GRANDFATHER GRANDMOTHER FH: CAD (coronary artery disease) FATHER GRANDFATHER Social History Smoking Status: Never Smoker Smokeless Tobacco Use: No Alcohol Use: occasionally Drug Use: none Marital Status: Housing status: lives with family Occupational Status: employed Immunizations History of Influenza Vaccine: Unknown History of Tetanus Vaccine?: Yes History of Pneumococcal: No Other Immunizations: Pertussis Allergies Coded Allergies: No Known Allergies (Unverified , 09/04/17) Home Medications Scheduled Aspirin (Aspirin Ec), 81 MG PO DAILY Atorvastatin (Lipitor), 20 MG PO QPM Hydrochlorothiazide (Hctz), 25 MG PO DAILY Metformin Hcl Er (Glucophage Er), 500 MG PO DAILY Multivitamin (Multivitamin), 1 TAB PO DAILY Naproxen (Naproxen), 500 MG PO BID Olmesartan Medoxomil (Benicar), 20 MG PO DAILY Scheduled PRN Meclizine Hcl (Meclizine Hcl), 25 MG PO TID PRN for Dizziness or Vertigo Review of Systems Cardiovascular: + chest pain (minimal discomfort) Physical Exam H&P v2 Physical Exam Vital Signs Date Time Temp Pulse Resp B/P (MAP) Pulse Ox O2 Delivery O2 Flow Rate FiO2 09/04/17 14:48 115 20 173/129 98 Room Air 09/04/17 14:31 117 18 227/115 98 Room Air 09/04/17 13:51 210/133 09/04/17 13:51 196/135 09/04/17 13:40 116 18 211/129 97 Room Air 09/04/17 12:39 98 Room Air 09/04/17 12:38 112 18 182/127 98 Room Air 09/04/17 12:16 115 09/04/17 11:59 37.1 118 18 204/111 98 Room Air General Appearance: no apparent distress Head: normocephalic Eyes: normal inspection ENT: normal ENT inspection Neck: supple Respiratory/Chest: chest non-tender, lungs clear, normal breath sounds Cardiovascular: regular rate, rhythm Abdomen/GI: normal bowel sounds, non tender, soft, no organomegaly Back: normal inspection Extremities/Musculoskelatal: normal inspection, no calf tenderness 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, no motor/sensory deficits Skin: normal color Lymphatic: no adenopathy Diagnostics H&P v2 Diagnostics Laboratory Results Results Past 24 Hours Test 09/04/17 12:20 09/04/17 13:02 Range/Units White Blood Count 11.30 4.8-10.8 K/uL Red Blood Count 5.45 4.7-6.1 M/uL Hemoglobin 16.3 14.0-18.0 g/dL Hematocrit 44.5 42-52 % Mean Corpuscular Volume 81.7 80-100 fL Mean Corpuscular Hemoglobin 29.9 25-34 pg Mean Corpuscular Hemoglobin Concent 36.6 32-36 g/dl Platelet Count 207 130-400 K/uL Mean Platelet Volume 9.3 7.4-10.4 fL Neutrophils (%) (Auto) 84.7 % Lymphocytes (%) (Auto) 12.6 % Monocytes (%) (Auto) 1.9 % Eosinophils (%) (Auto) 0.2 % Basophils (%) (Auto) 0.2 % Neutrophils # (Auto) 9.58 1.4-6.5 K/uL Lymphocytes # (Auto) 1.42 1.2-3.4 K/uL Monocytes # (Auto) 0.21 0.11-0.59 K/uL Eosinophils # (Auto) 0.02 0-0.5 K/uL Basophils # (Auto) 0.02 0-0.2 K/uL RDW Standard Deviation 38.6 36.4-46.3 fL RDW Coefficient of Variation 12.9 11.5-14.5 % Immature Granulocyte % (Auto) 0.4 % Immature Granulocyte # (Auto) 0.05 0.00-0.02 K/uL Prothrombin Time 10.0 9.0-12.0 SECONDS Prothromb Time International Ratio 1.0 0.9-1.1 Activated Partial Thromboplast Time 23.4 21.0-31.0 SECONDS Partial Thromboplastin Ratio 0.9 Sodium Level 134 136-145 mmol/L Potassium Level 3.9 3.5-5.1 mmol/L Chloride Level 101 98-107 mmol/L Carbon Dioxide Level 26 21-32 mmol/L Anion Gap 7.0 3-11 mmol/L Blood Urea Nitrogen 12 7-18 mg/dl Creatinine 1.05 0.60-1.40 mg/dl Est Creatinine Clear Calc Drug Dose 132.0 ml/min Estimated GFR () 102.4 Estimated GFR (Non- 88.4 BUN/Creatinine Ratio 11.2 10-20 Random Glucose 192 70-99 mg/dl Estimated Average Glucose 134 mg/dl Hemoglobin A1c 6.3 4.5-5.6 % Calcium Level 10.5 8.5-10.1 mg/dl Total Bilirubin 1.8 0.2-1 mg/dl Direct Bilirubin 0.3 0-0.2 mg/dl Aspartate Amino Transf (AST/SGOT) 33 15-37 U/L Alanine Aminotransferase (ALT/SGPT) 78 12-78 U/L Alkaline Phosphatase 98 45-117 U/L Total Creatine Kinase 123 39-308 U/L Creatine Kinase MB 1.1 0.5-3.6 ng/ml Creatine Kinase MB Ratio 0.9 0-3.0 Troponin I < 0.015 0-0.045 ng/ml Total Protein 8.9 6.4-8.2 gm/dl Albumin 4.9 3.4-5.0 gm/dl Lipase 160 73-393 U/L Thyroid Stimulating Hormone (TSH) 1.010 0.300-4.500 uIu/ml Ionized Calcium 1.27 1.12-1.32 mmol/l CXR normal other (Partial RBBB) Impression H&P v2 Impression Assessment and Plan Hypertensive urgency. He was started with them hydrochlorothiazide 25 mg daily was given a dose of Benicar and also Nitropaste in the emergency room We will increase his Benicar to 40 mg daily and continue his hydrochlorothiazide We will monitor his blood pressure while in the hospital. Chest discomfort Doubt any ACS. He will be admitted to telemetry unit. Will get serial cardiac enzymes. Get an echocardiogram. Hyperlipidemia Continue with his statin. We will check his fasting lipid profile in the morning. Type 2 diabetes We will hold his metformin while in the hospital. Check blood sugar before meals at bedtime and cover with sliding scale insulin. We will check hemoglobin A1c in the hospital. Familial hyperparathyroidism His calcium seems to be stable. Advised plenty of water orally. CLARKE ON CPAP Continue with CPAP while in the hospital. DVT prophylaxis With Lovenox. CODE STATUS Full resuscitation Advanced Directives Existing Advance Directive: No Existing Living Will: No Existing Power of Laundromat Worker: No Existing Health Care Proxy: No Resuscitation Status Full VTE Prophylaxis Will order VTE Prophylaxis: Yes Physical Exam (per Admitting): General Appearance: no apparent distress Head: normocephalic Eyes: normal inspection ENT: normal ENT inspection Neck: supple Respiratory/Chest: chest non-tender, lungs clear, normal breath sounds Cardiovascular: regular rate, rhythm Abdomen/GI: normal bowel sounds, non tender, soft, no organomegaly Back: normal inspection Extremities/Musculoskelatal: normal inspection, no calf tenderness 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 He was started with them hydrochlorothiazide 25 mg daily was given a dose of Benicar and also Nitropaste in the emergency room We will increase his Benicar to 40 mg daily and continue his hydrochlorothiazide We will monitor his blood pressure while in the hospital. BP remained on higher side but no urgency Chest discomfort Doubt any ACS. He will be admitted to telemetry unit. Will get serial cardiac enzymes. Get an echocardiogram-cancelled as this was done in Feb 2017 No ACS and no more chest discomfort Hyperlipidemia Continue with his statin. We will check his fasting lipid profile in the morning. Type 2 diabetes We will hold his metformin while in the hospital. Check blood sugar before meals at bedtime and cover with sliding scale insulin. We will check hemoglobin A1c in the hospital.-6.3 Familial hyperparathyroidism His calcium seems to be stable. Advised plenty of water orally. Calcium-10.2 CLARKE ON CPAP Continue with CPAP while in the hospital. DVT prophylaxis With Lovenox. CODE STATUS Full resuscitation Discharge today Total time spent on discharge = 35 minutes This includes examination of the patient, discharge planning, medication reconciliation, and communication with other providers. Discharge Instructions Date of Service Sep 05, 2017. Admission Reason for Admission: Hypertensive Urgency Discharge Discharge Diagnosis / Problem: Hypertensive Urgency Discharge Goals Goal(s): Prevent Disease Progression Activity Recommendations Activity Limitations: resume your previous activity Dr Carmen Foss on 09/10/17 at 9:45 AM . Current Hospital Diet Patient's current hospital diet: Regular Diet, Diabetes Type 2 Diet Discharge Diet Recommended Diet: Diabetes Type 2 Diet Pending Studies Studies pending at discharge: no Laboratory Results Hemoglobin A1c Test 09/04/17 12:20 Range/Units Estimated Average Glucose 134 mg/dl Hemoglobin A1c 6.3 H 4.5-5.6 % Lipid Panel Test 09/05/17 03:52 Range/Units Triglycerides Level 144 0-150 mg/dl Cholesterol Level 168 0-200 mg/dl HDL Cholesterol 46 mg/dl Cholesterol/HDL Ratio 3.7 LDL Cholesterol, Calculated 93 mg/dl Medical Emergencies . Who to Call and When: Medical Emergencies: If at any time you feel your situation is an emergency, please call 911 immediately. . Non-Emergent Contact Non-Emergency issues call your: Primary Care Provider . Past History Medical & Surgical History: (1) Hypertensive urgency (2) Anxiety (3) DM type 2 (diabetes mellitus, type 2) (4) HTN (hypertension) (5) CLARKE on CPAP (6) Bacteremia (7) H/O sinus surgery (8) History of parathyroid surgery . "Provider Documentation" section prepared by Nirmal Washburn. . <Electronically signed by Nirmal Washburn M.D.> Additional Copies To Anjelica Foss M.D.
== END 2017-09-05 15:22 | disposition home or self-care (01) ==
LOC: C.EDB 11:52 → C.2T 16:07 → ENRESERV 16:11
PROVIDERS: ADMIT Internal Medicine; ATTEND Internal Medicine
DX: I10 Essential (primary) hypertension (principal); R07.9 Chest pain, unspecified; F41.9 Anxiety disorder, unspecified; E11.9 Type 2 diabetes mellitus without complications; E21.3 Hyperparathyroidism, unspecified; E78.5 Hyperlipidemia, unspecified; G47.33 Obstructive sleep apnea (adult) (pediatric); Z83.3 Family history of diabetes mellitus; Z82.49 Family history of ischemic heart disease and other diseases of the circulatory system; Z79.899 Other long term (current) drug therapy; Z79.84 Long term (current) use of oral hypoglycemic drugs; Z79.82 Long term (current) use of aspirin

== ENCOUNTER 2017-09-23 23:15 | Emergency (ER) | payer BC ==
[~2017-09-23] VITALS: Ht 185.4 cm; Wt 118.6 kg
[~2017-09-23 23:15] MED LIST changes: -BNC/40 PO; +BNC40 PO; +HYDR25TA5 PO; +MECL1TAB42 PO; +NAPR-1231 PO
[2017-09-23 23:21] VITALS: TEMP 36.4; Ht 185.4 cm; Wt 118.6 kg
[2017-09-23] MEDS ORDERED: LORAZEPAM 1 MG TAB SL STA (23:34)
[2017-09-23] MEDS ORDERED: OLME40TA30 PO (23:58)
[2017-09-23] MEDS ORDERED: AMLO2.5T PO (23:59)
[2017-09-24] MEDS ORDERED: ATIVAN 1MG HOMEPACK PO ONE (00:45)
[2017-09-24 00:51] VITALS: BP 148/92; PULSE 76; O2SAT 98
--- NOTE | 2017-09-24 03:04 | EMERGENCY ROOM VISIT NOTE ---
History First contact with patient: 23:25 Chief Complaint: HYPERTENSION Stated Complaint: HIGH BLOOD PRESSURE History of Present Illness The patient is a 41 year old male who presents to the Emergency Room with complaints of elevated blood pressure for the past day who has a history of hypertension. Patient has been underneath more stress and anxiety lately as his is currently out of town and is caring for the kids. Patient states he checked his blood pressure multiple times today. The highest was 190/100. He has been taking his medications as directed. Patient denies chest pain, dyspnea, fever, chills, cough, dizziness, weakness, headaches, congestion, tobacco use, excessive alcohol use, excessive caffeine use. He does use salt. He has been exercising recently. Review of Systems An 10 system review of systems was completed with positives and pertinent negatives listed in the HPI. Past Medical/Surgical History Medical Problems: (1) Anxiety (2) Bacteremia (3) DM type 2 (diabetes mellitus, type 2) (4) HTN (hypertension) (5) Hypertensive urgency (6) CLARKE on CPAP Surgical Problems: (1) H/O sinus surgery (2) History of parathyroid surgery Family History Diabetes mellitus GRANDFATHER GRANDMOTHER FH: CAD (coronary artery disease) FATHER GRANDFATHER Social History Smoking Status: Never Smoker Alcohol Use: occasionally Drug Use: none Marital Status: Housing Status: lives with family Occupation Status: employed Current/Historical Medications Scheduled Amlodipine (Norvasc), 2.5 MG PO DAILY Aspirin (Aspirin Ec), 81 MG PO DAILY Atorvastatin (Lipitor), 20 MG PO QPM Metformin Hcl Er (Glucophage Er), 500 MG PO DAILY Multivitamin (Multivitamin), 1 TAB PO DAILY Olmesartan/Hctz (Benicar Hct 40/12.5), 40 MG PO DAILY Physical Exam Vital Signs Date Time Temp Pulse Resp B/P (MAP) Pulse Ox O2 Delivery O2 Flow Rate FiO2 09/24/17 00:51 76 16 148/92 98 09/24/17 00:21 78 16 157/98 98 Room Air 09/23/17 23:21 36.4 86 18 169/103 97 Room Air Physical Exam VITALS: Vitals are noted on the nurse's note and reviewed by myself. Vital signs hypertensive. GENERAL: Anxious appearing male, in no acute distress, nondiaphoretic, well- developed well-nourished. SKIN: The skin was without rashes, erythema, edema, or bruising. There is no tenting of the skin. Capillary reflex less than 2 seconds. HEAD: Normocephalic atraumatic. EARS: External auditory canals clear, tympanic membranes pearly velasquez without erythema or effusion bilaterally. EYES: Pupils equal round and reactive to light and accommodation. Conjunctivae without injection, sclerae without icterus. Extraocular movements intact. NOSE: Patent, turbinates without inflammation or discharge. MOUTH: Mucous membranes moist. Pharynx without erythema or exudate. Uvula midline. Airway patent. Tongue does not deviate. NECK: Supple without nuchal rigidity. No lymphadenopathy. No thyromegaly. Cervical spine is nontender. No JVD. HEART: Regular rate and rhythm without murmurs gallops or rubs. LUNGS: Clear to auscultation bilaterally without wheezes, rales or rhonchi. No retractions or accessory muscle use. ABDOMEN: Positive bowel sounds x 4. Normal tympanic percussion. Soft, nontender, without masses or organomegaly. Rowland sign negative. No guarding or rebound tenderness. No CVA tenderness MUSCULOSKELETAL: No muscle atrophy, erythema, or edema noted. NEURO: Patient was alert and oriented to person place and time. Normal sensation to light and sharp touch. No focal neurological deficits. Medical Decision & Procedures Medications Administered Medications (Trade) Dose Ordered Sig/Carson Route Start Time Stop Time Status Last Admin Dose Admin Lorazepam (Ativan Tab) 1 mg NOW STAT SL 09/23/17 23:34 09/23/17 23:35 DC 09/23/17 23:39 1 MG ED Course Prior records/ancillary studies reviewed regarding the history above. Triage Nursing notes reviewed. Additional history obtained from the family. The patient's history was concerning for hypertension. Differential diagnosis: Etiologies such as benign hypertension, hypertensive emergency, cardiovascular pathology, pheochromocytoma, electrolyte abnormality, renal disease, endorgan damage, as well as others were entertained. Physical examination: As above. No signs of end organ damage. ER treatment provided: Ativan On reassessment the patient felt better. Diagnostic interpretation by me: Deferred Patient was hospitalized here 2-1/2 weeks ago with an extensive workup that was unremarkable. This appears to be consistent with hypertension that improved after a little bit of anxiety medication. Patient was advised to decrease anxiety and stress and only check his blood pressure twice a day or when he is symptomatic. He Is advised to follow-up this week with his family care doctor for further evaluation and treatment for his blood pressure and to continue his regular exercise routine and to decrease his caffeine, alcohol, tobacco and salt intake. Patient was advised to return to the ER immediately for chest pain, headaches, high blood pressure, worsening signs or symptoms or as needed. Patient was hospitalized 2-1/2 weeks for his blood pressure. He an extensive workup done. I do not feel like he needed repeat blood work today as he was asymptomatic. By the evaluation outlined above emergent etiologies such as hypertensive emergency, pheochromocytoma, endorgan damage, cardiac ischemia, aortic dissection, pulmonary embolism, pneumonia, pneumothorax, infections, gastrointestinal, as well as others were deemed relatively unlikely. The pt informed about the findings as listed above. All questions were answered and pleased with the treatment. Return instructions were outlined and the patient was discharged in stable condition. Outpatient prescription management: Ativan Referral: The patient was referred back to their primary care physician for follow-up in 2 to 3 days for a recheck of the current condition. Case reviewed with my attending The chart was completed utilizing [employer] Speech voice recognition software. Grammatical errors, random word insertions, pronoun errors, and incomplete sentences are an occassional consequence of this system due to software limitations, ambient noise, and hardware issues. Any formal questions or concerns about the content, text, or information contained within the body of this dictation should be directly addressed to the physician operations and intelligence assistant for clarification. Medical Decision As above Medication Reconcilliation Current Medication List: was personally reviewed by me Blood Pressure Screening Patient's blood pressure: Elevated blood pressure Blood pressure disposition: Elevated BP felt to be situational Impression Primary Impression: HTN (hypertension) Departure Information Dispostion Home / Self-Care Condition GOOD Referrals Anjelica Foss M.D. (PCP) Forms WORK / SCHOOL INSTRUCTIONS, HOME CARE DOCUMENTATION FORM, IMPORTANT VISIT INFORMATION Patient Instructions High Blood Pressure, My [facility] Additional Instructions DO NOT drive, drink alcohol, operate machinery, or perform dangerous activities today. You were given medications in the ER that can affect your ability to safely function or operate a vehicle. Ativan 1 m tablet every 8 hours as needed for stress and anxiety. No alcohol or driving on this medication. Recommend regular exercise of 30 minutes of cardiovascular activity at least 5 times a week. Recommend checking a blood pressure only twice a day, in the morning and at night. Avoid stressing of your blood pressure, this will increase your blood pressure. Decrease caffeine, alcohol, tobacco and salt intake. Avoid stimulants near bedtime. Rest and drink plenty of fluids as tolerated. Continue current medications. Return to the ER immediately for worsening or persistent prolonged hypertension , abdominal pain, vomiting, fevers, chest pains, difficulty breathing, worsening of your condition, or as needed. Follow up with your primary physician in 2-3 days for a recheck of your current condition. Problem Qualifiers Primary Impression: HTN (hypertension) Hypertension type: unspecified Qualified Codes: I10 - Essential (primary) hypertension
== END 2017-09-24 00:52 | disposition home or self-care (01) ==
LOC: C.EDB 23:16
DX: I10 Essential (primary) hypertension (principal); F41.9 Anxiety disorder, unspecified; E11.9 Type 2 diabetes mellitus without complications; G47.33 Obstructive sleep apnea (adult) (pediatric); Z83.3 Family history of diabetes mellitus; Z82.49 Family history of ischemic heart disease and other diseases of the circulatory system; Z79.82 Long term (current) use of aspirin; Z79.84 Long term (current) use of oral hypoglycemic drugs